=== PATIENT | female | born 1950 | race Caucasian/White ===

== ENCOUNTER → 2018-12-13 14:08 | Outpatient (CLI) | payer MEDICARE, OTHER, SELFPAY ==
--- NOTE | 2018-12-13 | DI.MG.S_ITS ---
BILATERAL DIGITAL SCREENING MAMMOGRAM 3D/2D WITH CAD: 12/13/2018 CLINICAL: Routine screening. Family history of breast cancer. Comparison is made to exams dated: 09/27/2014 mammogram, 04/09/2011 mammogram, and 04/03/2011 mammogram - [facility]. The tissue of both breasts is heterogeneously dense. This may lower the sensitivity of mammography. Current study was also evaluated with a Computer Aided Detection (CAD) system. No significant masses, calcifications, or other findings are seen in either breast. There has been no significant interval change. IMPRESSION: NEGATIVE There is no mammographic evidence of malignancy. A 1 year screening mammogram is recommended. This exam was interpreted at Station ID: [id number]. NOTE: For mammograms, a report in lay terms will be sent to the patient. Approximately 15% of breast malignancies will not be visualized mammographically. In the management of a palpable breast mass, a negative mammogram must not discourage biopsy of a clinically suspicious lesion. Electronically Signed By: Dez rossi/yael:12/13/2018 18:42:54 letter sent: Normal Exam ACR BI-RADS Category 1: Negative 3341F
== END ==
PROVIDERS: PCP Physician Assistant; Visit Provider Physician Assistant
DX: Z12.31 Encounter for screening mammogram for malignant neoplasm of breast (principal); Z80.3 Family history of malignant neoplasm of breast
CPT/HCPCS: 77063; 77067

== ENCOUNTER 2019-02-08 11:55 | Day surgery (SDC) | payer MEDICARE, OTHER, SELFPAY ==
--- NOTE | 2019-02-08 | PATH_ITS ---
[facility] Accession Number: [id number] . 01 Material submitted: . PART A: colon - RANDOM COLON PART B: colon - TRANSVERSE COLON POLYP PART C: colon - DESCENDING COLON POLYP PART D: sigmoid colon - SIGMOID COLON POLYP . 02 Diagnosis: A. Random Colon, Biopsies: Colonic mucosa with no diagnostic abnormality. Negative for active, chronic, and microscopic colitis. Negative for dysplasia and malignancy. . B. Transverse Colon, Polyp, Biopsy: Tubular adenoma. . C. Descending Colon, Polyp, Biopsy: Colonic mucosa with no diagnostic abnormality, consistent with polypoid redundancy. Negative for dysplasia and malignancy. . D. Sigmoid Colon, Polyp, Biopsy: Tubular adenoma. I02/09/2019 . 02 Electronically signed: . Milli Abarca MD, Pathologist NPI- [id number] . 01 Gross description: . Part A: RANDOM COLON: Received in formalin are multiple fragment(s) of connell, soft tissue measuring 0.2 x 0.2 x 0.2 cm to 0.3 x 0.3 x 0.3 cm which is entirely submitted and submitted entirely in 1 cassette(s) Part B: TRANSVERSE COLON POLYP: Received in formalin is 1 fragment(s) of connell, soft tissue measuring 0.7 x 0.3 x 0.2 cm which is entirely submitted and submitted entirely in 1 cassette(s) Part C: DESCENDING COLON POLYP: Received in formalin is 1 fragment(s) of connell, soft tissue measuring 0.4 x 0.3 x 0.2 cm which is entirely submitted and submitted entirely in 1 cassette(s) Part D: SIGMOID COLON POLYP: Received in formalin is 1 fragment(s) of connell, soft tissue measuring 0.6 x 0.6 x 0.6 cm which is entirely submitted and submitted entirely in 1 cassette(s) /D[facility] /[facility] . 02 Pathologist provided ICD-10: D12.3, D12.5 . 02 CPT . 486865, 647555, [id number], [id number] Performed at: 01 [facility] [address] [id number] MD Ariel Wheeler MD Phone: [phone] Performed at: 02 [facility] [address] [place] [id number] MD Milli Abarca MD Phone: [phone]
[2019-02-08 12:13] VITALS: BMI 20.9
[2019-02-08 12:19] VITALS: BP 126/67; PULSE 68; RESP 16; TEMP 36.7; O2SAT 100
[2019-02-08] MEDS: SODIUM CHLORIDE 0.9% 1,000 ML 70 ML IV (12:21)
--- NOTE | 2019-02-08 12:52 | PM.HP.1 ---
History of Present Illness Date Patient Seen: 02/08/19 Chief complaint: [id number] Narrative: 68-year-old female seen at our office 01/17/2019 due to chronic loose stools. Please refer to that office note for further details. No new changes in her clinical condition Patient History Social History household members: spouse Family & Social History Social History: household members spouse Meds Home Medications Medication Instructions Recorded Confirmed Type cholecalciferol (vitamin D3) 2,000 unit PO DAILY 02/08/19 02/08/19 History [Vitamin D3] omega 1-hlg-whm-fish oil [Fish Oil] 1 cap PO DAILY 02/08/19 02/08/19 History Allergies Allergy/AdvReac Type Severity Reaction Status Date / Time codeine [CODEINE] Allergy Unknown INABILITY Verified 02/08/19 12:15 TO SLEEP Exam Vital Signs (past 8 hours): - 02/08/19 12:19 Temperature 98.0 F Pulse Rate 68 Respiratory Rate 16 Blood Pressure 126/67 Pulse Oximetry 100 Oxygen Delivery Method Room Air Narrative Exam Narrative: General: Patient is well developed, not in apparent distress Cardiovascular: Regular rate and rhythm, no murmurs, rubs, or gallops; no evidence of edema; no palpable abdominal aortic aneurysm Gastrointestinal: Normoactive bowel sounds, soft, nontender, nondistended, no rebound tenderness, no hepatosplenomegaly, no evidence of hernia Assessment & Plan Assessment & Plan narrative: 68-year-old female with a history of chronic loose stools who is here for colonoscopy to evaluate for microscopic colitis. Regarding the procedure(s), the risks and potential complications, benefits, and alternatives (including not doing the procedure) were discussed with the patient. The risks include but are not limited to bleeding, splenic injury, infection, perforation which may require surgical intervention, missed lesions, and adverse reactions to sedative medicines. After a question and answer period, the patient agreed to proceed with the procedure(s) and gives informed consent.
[2019-02-08] MEDS: MIDAZOLAM 5 MG/5 ML VIAL IV (13:11)
[2019-02-08] MEDS: fentaNYL 250 MCG/5 ML INJ IV (13:13)
[2019-02-08 13:31] VITALS: BP 117/74; PULSE 64; RESP 16; TEMP 36.7; O2SAT 99
[2019-02-08 13:37] VITALS: BP 122/66; PULSE 72; RESP 18; O2SAT 99
[2019-02-08 13:41] VITALS: BP 113/69; PULSE 65; RESP 20; O2SAT 98
--- NOTE | 2019-02-08 13:41 | P.OP.ENDO_ITS ---
Operative Date/Time/Diagnoses Date of procedure: 02/08/19 Procedure Notes Procedure in detail: Surgeon: Remberto Oro MD Procedure: Colonoscopy with polypectomy Preoperative diagnosis: Chronic diarrhea Postoperative diagnosis: Colon polyps x3 status post polypectomy, diverticulosis, grade 1 internal hemorrhoids Medications: Conscious sedation using 5 mg IV of Midazolam and 100 mcg IV of Fentanyl Preanesthesia Assessment An H and P was performed/updated and the Px?s ASA class is 1. The procedure was discussed in detail with the patient. The potential risks and complications including infection, bleeding, missed lesions, perforation, need for surgery in case of perforation, prolonged hospital stay, and were explained. A brief question and answer period was allotted and once all questions were answered, informed consent was obtained. The patient was brought back to the procedure room and placed on standard monitoring. The patient?s vital signs were monitored continuously throughout the entire procedure. Prior to starting, a timeout was performed to confirm the patient?s identity, allergies, medications, and procedure. Procedure in detail The patient was placed in left lateral decubitus position and once adequate sedation was obtained a BARON was performed. The digital rectal examination did not reveal any palpable lesions. The tip of the colonoscope was placed in the anal canal and advanced without difficulty all the way to the cecum which was identified by the appendiceal orifice and the ileocecal valve. The terminal ileum could not be intubated due to significant looping of the scope. Careful examination of all reyna of the colon was performed with irrigation of any residual stool. The colon mucosa appeared normal throughout the entire colon. In the transverse colon, a 3 mm sessile polyp was removed by means of cold Jumbo forceps. Resection and retrieval were complete with minimal bleeding In the descending colon, a 3 mm sessile polyp was removed by means of cold Jumbo forceps. Resection and retrieval were complete with minimal bleeding In the sigmoid colon a 6 mm pedunculated polyp was removed by means of hot snare. Resection and retrieval were complete with no bleeding. There was note of few diverticula in the transverse and descending colon. There was note of multiple large and medium-sized diverticula throughout the entire sigmoid colon. Retroflexion was performed in the rectum which revealed grade 1 internal he morrhoids The patient tolerated the procedure well and will be brought back to the recovery area to be discharged once criteria are met. The prep was judged to be good/excellent and adequate to identify polyps less than 5 mm. The withdrawal time was 11 minutes. The total physician intraservice time was 23 minutes. Complications There were no complications and estimated blood loss was minimal. Recommendations: Resume previous diet Continue outPx medications Follow up pathology results Repeat colonoscopy in 3 or 5 years depending on pathology results Office follow up with Dr. Russell as previously scheduled An emergency contact number was given to the patient for any complications related to the procedure
--- NOTE | 2019-02-08 13:42 | P.DS_ITS ---
History of Present Illness Chief complaint: [id number] Narrative: 68-year-old female seen at our office 01/17/2019 due to chronic loose stools. Please refer to that office note for further details. No new changes in her clinical condition Discharge Providers Discharge Date: 02/08/19 Primary care physician: Kimber Jones PA-C Discharge provider: Remberto Oro MD Exam Vital Signs (past 8 hours): - 02/08/19 12:19 02/08/19 13:31 02/08/19 13:37 Temperature 98.0 F 98.1 F Pulse Rate 68 64 72 Respiratory Rate 16 16 18 Blood Pressure 126/67 117/74 122/66 Pulse Oximetry 100 99 99 Oxygen Delivery Method Room Air Narrative Exam Narrative: General: Patient is well developed, not in apparent distress Cardiovascular: Regular rate and rhythm, no murmurs, rubs, or gallops; no evidence of edema; no palpable abdominal aortic aneurysm Gastrointestinal: Normoactive bowel sounds, soft, nontender, nondistended, no rebound tenderness, no hepatosplenomegaly, no evidence of hernia Discharge Plan Discharge Plan Patient Disposition: Home Discharge Med Rec/Prescriptions Prescriptions: Continued cholecalciferol (vitamin D3) [Vitamin D3] 2,000 unit Capsule 2,000 unit PO DAILY RF: 0 omega 3-btj-isr-fish oil [Fish Oil] 1,000 mg (120 mg-180 mg) Capsule 1 cap PO DAILY RF: 0 Follow up/Referrals: Kimber Jones PA-C [Primary Care Provider] - Discharge Orders: Discharge (Order); Ordered 02/08/19 Ordered By: Remberto Oro Provider Discharge Instructions Diet: Diet as Tolerated Visit Report/Discharge Packet Stand Alone Forms: Colonoscopy Result: [facility] Discharge Data Primary Care Provider: Kimber Jones Attending Provider: Remberto Oro
[2019-02-08 13:44] VITALS: BP 128/69; PULSE 68; RESP 12; TEMP 36.8; O2SAT 97
== END 2019-02-08 14:03 | disposition home or self-care (01) ==
PROVIDERS: PCP Physician Assistant; Visit Provider Internal Medicine Gastroenterology
PROC: 0DJD8ZZ Inspection of Lower Intestinal Tract, Via Natural or Artificial Opening Endoscopic (ICD-10-PCS; CPT 45378; principal; 2019-02-08 13:30)
DX: K52.9 Noninfective gastroenteritis and colitis, unspecified (principal); K57.30 Diverticulosis of large intestine without perforation or abscess without bleeding; K64.0 First degree hemorrhoids; D12.3 Benign neoplasm of transverse colon; D12.5 Benign neoplasm of sigmoid colon
CPT/HCPCS: 45385; 45380; 88305; J2250; J3010

== ENCOUNTER → 2019-03-08 08:56 | Outpatient (CLI) | payer MEDICARE, OTHER, SELFPAY ==
[2019-03-12 19:33] LABS: Calprotectin, Stool < 15.6 mcg/g
== END ==
PROVIDERS: PCP Physician Assistant; Visit Provider Internal Medicine Gastroenterology
DX: R19.7 Diarrhea, unspecified (principal)
CPT/HCPCS: 83993

== ENCOUNTER → 2019-08-22 14:13 | Outpatient (CLI) | payer MEDICARE, OTHER, SELFPAY ==
--- NOTE | 2019-08-22 | DI.RAD.S_ITS ---
PROCEDURE: XR HAND LT 2V INDICATIONS: PRIMARY OSTEOARTHRITIS BOTH HANDS TECHNIQUE: 3 views of the hand(s) acquired. COMPARISON: [facility], , XR HAND 3V LT, 09/05/2003, 2:45. FINDINGS: Bones: No fractures or dislocations. Carpal bones are normally aligned. No suspicious bony lesions. There is moderate degenerative joint disease at the first carpometacarpal joint, and mild degenerative joint disease at the radiocarpal joint, multiple metacarpophalangeal joints and multiple interphalangeal joints. Soft tissues: No suspicious soft tissue calcifications. IMPRESSION: Moderate degenerative joint disease. Dictated by: Manuel Sutton M.D. on 08/22/2019 at 18:03 Approved by: Manuel Sutton M.D. on 08/22/2019 at 18:05
--- NOTE | 2019-08-22 | DI.RAD.S_ITS ---
PROCEDURE: XR HAND RT 2V INDICATIONS: PRIMARY OSTEOARTHRITIS BOTH HANDS TECHNIQUE: 2 views of the hand(s) acquired. COMPARISON: None. FINDINGS: Bones: No acute fractures or dislocations. Carpal bones are normally aligned. Probably old dorsal plate injury at the fifth proximal interphalangeal joint. No suspicious bony lesions. Nlaj-ad-bqoxpque degenerative joint disease at the radiocarpal joint, triscaphe joint, first carpal metacarpal joint, multiple metacarpal phalangeal joints and interphalangeal joints. Soft tissues: No suspicious soft tissue calcifications. IMPRESSION: Vmzq-rj-nwzjstyx osteoarthritis. Likely old dorsal plate injury at the fifth proximal interphalangeal joint. Dictated by: Manuel Sutton M.D. on 08/22/2019 at 18:01 Approved by: Manuel Sutton M.D. on 08/22/2019 at 18:02
== END ==
PROVIDERS: PCP Physician Assistant; Visit Provider Physician Assistant
DX: M19.042 Primary osteoarthritis, left hand (principal); M19.041 Primary osteoarthritis, right hand
CPT/HCPCS: 73120

== ENCOUNTER → 2019-12-20 10:59 | Outpatient (CLI) | payer MEDICARE, OTHER, SELFPAY ==
--- NOTE | 2019-12-20 11:04 | DI.MG.S_ITS ---
BILATERAL DIGITAL SCREENING MAMMOGRAM 3D/2D WITH CAD: 12/20/2019 CLINICAL: Routine screening. Family history of breast cancer. Comparison is made to exams dated: 12/13/2018 mammogram, 09/27/2014 mammogram, and 04/09/2011 mammogram - [facility]. The tissue of both breasts is heterogeneously dense. This may lower the sensitivity of mammography. Current study was also evaluated with a Computer Aided Detection (CAD) system. No significant masses, calcifications, or other findings are seen in either breast. There has been no significant interval change. IMPRESSION: NEGATIVE There is no mammographic evidence of malignancy. A 1 year screening mammogram is recommended. This exam was interpreted at Station ID: [id number]. NOTE: For mammograms, a report in lay terms will be sent to the patient. Approximately 15% of breast malignancies will not be visualized mammographically. In the management of a palpable breast mass, a negative mammogram must not discourage biopsy of a clinically suspicious lesion. Electronically Signed By: Vianca lugo/yael:12/20/2019 16:12:42 letter sent: Normal Exam ACR BI-RADS Category 1: Negative 3341F
== END ==
PROVIDERS: PCP Physician Assistant; Referring Provider Physician Assistant; Visit Provider Physician Assistant
DX: Z12.31 Encounter for screening mammogram for malignant neoplasm of breast (principal); Z80.3 Family history of malignant neoplasm of breast
CPT/HCPCS: 77063; 77067

== ENCOUNTER → 2020-11-21 07:36 | Outpatient (CLI) | payer MEDICARE, OTHER, SELFPAY ==
[2020-11-21] MEDS: COVID-19 VACC #1, MRNA(MOD) 100 MCG/0.5 ML VIAL IM (07:48)
== END ==
PROVIDERS: PCP Physician Assistant; Visit Provider Internal Medicine
DX: Z23 Encounter for immunization (principal)
CPT/HCPCS: 0011A; 91301

== ENCOUNTER → 2020-12-19 07:32 | Outpatient (CLI) | payer MEDICARE, OTHER, SELFPAY ==
[2020-12-19] MEDS: COVID-19 VACC #2, MRNA(MOD) 100 MCG/0.5 ML VIAL IM (07:38)
== END ==
PROVIDERS: PCP Physician Assistant; Visit Provider Internal Medicine
DX: Z23 Encounter for immunization (principal)
CPT/HCPCS: 0012A; 91301

== ENCOUNTER → 2020-12-27 10:35 | Outpatient (CLI) | payer MEDICARE, OTHER, SELFPAY ==
--- NOTE | 2020-12-27 10:38 | DI.MG.S_ITS ---
BILATERAL DIGITAL SCREENING MAMMOGRAM 3D/2D WITH CAD: 12/27/2020 CLINICAL: Routine screening. Family history of breast cancer. Comparison is made to exams dated: 12/20/2019 mammogram, 12/13/2018 mammogram, and 09/27/2014 mammogram - [facility]. The tissue of both breasts is heterogeneously dense. This may lower the sensitivity of mammography. Current study was also evaluated with a Computer Aided Detection (CAD) system. No significant masses, calcifications, or other findings are seen in either breast. There has been no significant interval change. IMPRESSION: NEGATIVE There is no mammographic evidence of malignancy. A 1 year screening mammogram is recommended. This exam was interpreted at Station ID: [id number]. NOTE: For mammograms, a report in lay terms will be sent to the patient. Approximately 15% of breast malignancies will not be visualized mammographically. In the management of a palpable breast mass, a negative mammogram must not discourage biopsy of a clinically suspicious lesion. Electronically Signed By: Leonides lomas/yael:12/27/2020 12:23:41 letter sent: Normal Exam ACR BI-RADS Category 1: Negative 3341F
== END ==
PROVIDERS: PCP Physician Assistant; Referring Provider Physician Assistant; Visit Provider Physician Assistant
DX: Z12.31 Encounter for screening mammogram for malignant neoplasm of breast (principal); Z80.3 Family history of malignant neoplasm of breast
CPT/HCPCS: 77063; 77067

== ENCOUNTER → 2021-08-27 09:02 | Outpatient (CLI) | payer MEDICARE, OTHER, SELFPAY ==
--- NOTE | 2021-08-27 09:07 | DI.RAD.S_ITS ---
PROCEDURE: XR ANKLE LT MIN 3V INDICATIONS: LT FOOT/ANKLE INJURY TECHNIQUE: 3 views of the ankle were acquired. COMPARISON: [facility], , XR FOOT LT MIN 3V, 08/27/2021, 9:01. FINDINGS: Bones: No fractures or dislocations. Ankle mortise is normally aligned. No suspicious bony lesions. Soft tissues: No tibiotalar joint effusion. Achilles tendon appears normal. IMPRESSION: No visualized acute fracture or dislocation. However, if clinical concern and/or pain persist, short interval imaging followup in 7-10 days is recommended, as occult injury cannot be definitively excluded. Dictated by: Yessica Cordoba M.D. on 08/27/2021 at 16:32 Approved by: Yessica Cordoba M.D. on 08/27/2021 at 16:35
--- NOTE | 2021-08-27 09:07 | DI.RAD.S_ITS ---
PROCEDURE: XR FOOT LT MIN 3V INDICATIONS: LT FOOT/ANKLE INJURY TECHNIQUE: 3 views of the foot were acquired. COMPARISON: [facility], , FOOT 3V LEFT, 08/18/2011, 16:31. FINDINGS: Bones: No acute fracture. Moderate 1st MTP joint degeneration. Bunion deformity of the 5th metatarsal. There is adjacent soft tissue swelling, at the level of the 5th metatarsal head. Scattered degenerative subchondral sclerosis and spurring. Soft tissues: No tibiotalar joint effusion. Achilles tendon appears normal. IMPRESSION: Chronic and degenerative changes as above. If the patient's pain or other symptoms persist, consider further evaluation with MRI Dictated by: Bashir Valladares M.D. on 08/27/2021 at 16:17 Approved by: Bashir Valladares M.D. on 08/27/2021 at 16:19
== END ==
PROVIDERS: PCP Physician Assistant; Referring Provider Internal Medicine; Visit Provider Internal Medicine
DX: S99.912A Unspecified injury of left ankle, initial encounter (principal); M21.622 Bunionette of left foot; X58.XXXA Exposure to other specified factors, initial encounter
CPT/HCPCS: 73610; 73630

== ENCOUNTER → 2021-09-12 16:25 | Outpatient (CLI) | payer MEDICARE, OTHER, SELFPAY ==
[2021-09-12] MEDS: COVID-19 VACC #3, MRNA(MOD) 50 MCG/0.25 ML VIAL IM (16:43)
== END ==
PROVIDERS: PCP Physician Assistant; Visit Provider Internal Medicine
DX: Z23 Encounter for immunization (principal)
CPT/HCPCS: 0013A; 91301

== ENCOUNTER → 2021-10-09 08:52 | Outpatient (CLI) | payer MEDICARE, OTHER, SELFPAY ==
--- NOTE | 2021-10-09 | DI.RAD.S_ITS ---
PROCEDURE: XR FOOT LT MIN 3V INDICATIONS: LEFT ANKLE INJURY TECHNIQUE: 3 views of the foot were acquired. COMPARISON: [facility], , XR FOOT LT MIN 3V, 08/27/2021, 9:01. FINDINGS: Bones: No fractures or dislocations. No suspicious bony lesions. Moderate 1st MTP joint osteoarthritis. Mild midfoot osteoarthritis. Lateral bunion deformity is stable compared to the prior examination. Soft tissue prominence adjacent to the 5th metatarsal bunion is stable. Soft tissues: No tibiotalar joint effusion. Achilles tendon appears normal. IMPRESSION: No fracture. No acute osseous lesion. If symptoms and/or clinical suspicion for pathology persists, further assessment with repeat radiographs (7-10 days) or advanced imaging (e.g. CT, MRI or bone scan) should be considered. Dictated by: Margot Hayden MD, PhD on 10/09/2021 at 16:06 Approved by: Margot Hayden MD, PhD on 10/09/2021 at 16:08
== END ==
PROVIDERS: PCP Physician Assistant; Referring Provider Physician Assistant; Visit Provider Internal Medicine
DX: S99.912A Unspecified injury of left ankle, initial encounter (principal); M19.072 Primary osteoarthritis, left ankle and foot; X58.XXXA Exposure to other specified factors, initial encounter
CPT/HCPCS: 73610; 73630

== ENCOUNTER → 2021-11-03 11:41 | Outpatient (CLI) | payer MEDICARE, OTHER, SELFPAY ==
[2021-11-03 14:51] LABS: COVID19 -Nasal RAPID Negative (Negative)
== END ==
PROVIDERS: PCP Physician Assistant; Referring Provider Nurse Practitioner Family; Visit Provider Nurse Practitioner Family
DX: Z01.812 Encounter for preprocedural laboratory examination (principal); Z20.822 Contact with and (suspected) exposure to COVID-19
CPT/HCPCS: 87635; C9803

== ENCOUNTER 2021-11-04 07:45 | Day surgery (SDC) | payer MEDICARE, OTHER, SELFPAY ==
[2021-11-04] MEDS: PROPARACAINE 0.5% OPHTH SOL 2 DROPS EYE-OP (08:35)
[2021-11-04] MEDS: CATARACT EYE COMPOUND (10 DROPS/SYRINGE) 3 DROPS EYE-OP (08:35)
[2021-11-04 09:03] VITALS: BP 135/76; PULSE 63; RESP 18; TEMP 36.3; O2SAT 100
--- NOTE | 2021-11-04 09:37 | PM.PREOP ---
Pre-operative Note Interval Note History & Physical reviewed/Exam performed by Physician: Yes Changes to H&P: No
--- NOTE | 2021-11-04 09:37 | PM.OP.1 ---
Operative Date/Time/Diagnoses Pre-op diagnosis: Nuclear cataract right eye Procedure & Clinicians Procedure: Cataract Surgery Same procedure as scheduled: Yes Surgeon: Tyshawn Raygoza Anesthesia Type: MAC +/- and Sedation Operative Notes Procedure in detail: Patient brought to the operating suite. Tetracaine drops placed in the right eye. Patient was prepped and draped in sterile manner. Wire lid speculum was placed in the eye. Betadine drops were placed on the eye. This was irrigated. Lidocaine jelly was placed on the eye. A paracentesis port was created with a side-port blade. 0.1 mL 1% preservative free lidocaine was injected into the anterior chamber. The anterior chamber was deepened with viscoelastic. 2.6 mm keratome was used to create a temporal clear corneal incision. Cystotome and Utrata forceps were used to create continuous tear capsulorrhexis. Balanced salt solution was used to hydro dissect the nucleus. The phacoemulsification handpiece was inserted and the nucleus was removed using the stop and chop technique. The irrigation aspiration handpiece was inserted and the remaining cortex was removed. Anterior chamber was deepened with viscoelastic. An Henry DIB00 intraocular lens with a power of 21.0 was injected into the capsular bag. Irrigation aspiration handpiece was inserted and the remaining viscoelastic was removed. Incision was hydrated with balanced salt solution and found to be leak free with pressure with Weck-Luna sponges. 0.1 mL Vigamox injected anterior chamber. 0.3 mL Kenalog 10 mg was injected subconjunctivally. Lid speculum was removed. The patient left the operating room in excellent condition. Complications: none Post-operative Condition: stable Disposition: same day surgery
[2021-11-04] MEDS: MOXIFLOXACIN INJ 4 MG/0.8 ML VIAL 0.5 MG EYE-OP (09:56)
[2021-11-04] MEDS: HYALURONATE SODIUM 30 MG-10 MG/ML SYRINGES 1 BOX INTRAOCULA (09:56)
[2021-11-04] MEDS: PHENYLEPHRINE/LIDOCAINE VIAL (OR) 0.2 ML EYE-OP (09:57)
[2021-11-04] MEDS: TRIAMCINOLONE 50 MG/5 ML VIAL INJ (09:57)
[2021-11-04] MEDS: TETRACAINE 0.5% OPHTH DROPS 4 ML 2 DROPS EYE-OP (09:57)
[2021-11-04] MEDS: LIDOCAINE 2% (GLYDO) 6 ML GEL TOP (09:57)
[2021-11-04] MEDS: BALANCED SALT IRRIG SOLN NO.2 500 ML, EPINEPHrine 1 MG IRR (09:57)
[2021-11-04 10:09] VITALS: BP 135/76; PULSE 63; RESP 16; TEMP 36.3; O2SAT 100
[2021-11-04 10:25] VITALS: BP 133/72; PULSE 57; RESP 16; TEMP 36.4; O2SAT 99
== END 2021-11-04 10:27 | disposition home or self-care (01) ==
PROVIDERS: PCP Physician Assistant; Referring Provider Ophthalmology; Visit Provider Ophthalmology
PROC: (CPT 66984; principal; 2021-11-04 09:45)
DX: H25.11 Age-related nuclear cataract, right eye (principal)
CPT/HCPCS: 66984; J0171; J2250; J3301

== ENCOUNTER → 2021-12-01 11:50 | Outpatient (CLI) | payer MEDICARE, OTHER, SELFPAY ==
[2021-12-01 13:53] LABS: COVID19 -Nasal RAPID Negative (Negative)
== END ==
PROVIDERS: PCP Physician Assistant; Visit Provider Family Medicine Sleep Medicine
DX: Z20.822 Contact with and (suspected) exposure to COVID-19 (principal)
CPT/HCPCS: 87635; C9803

== ENCOUNTER 2021-12-02 12:00 | Day surgery (SDC) | payer MEDICARE, OTHER, SELFPAY ==
[2021-12-02] MEDS: PROPARACAINE 0.5% OPHTH SOL 2 DROPS EYE-OP (13:00)
[2021-12-02 13:05] VITALS: BP 133/74; PULSE 75; RESP 16; TEMP 36.8; O2SAT 97; BMI 21.6
[2021-12-02] MEDS: CATARACT EYE COMPOUND (10 DROPS/SYRINGE) 3 DROPS EYE-OP (13:18)
--- NOTE | 2021-12-02 13:41 | P.OP.PRE_ITS ---
Pre-operative Note Interval Note History & Physical reviewed/Exam performed by Physician: Yes Changes to H&P: No Addendum Addendum Note: There are not any non surgical alternatives for the patient's condition. Det erioration of the patient's condition is expected. Delay may result in more complex future surgery
--- NOTE | 2021-12-02 13:42 | PM.OP.1 ---
Operative Date/Time/Diagnoses Pre-op diagnosis: Nuclear Cataract Left eye Post-op diagnosis: same Procedure & Clinicians Same procedure as scheduled: Yes Surgeon: Tyshawn Raygoza Anesthesia Type: MAC +/- and Sedation Operative Notes Procedure in detail: Patient brought to the operating suite. Tetracaine drops placed in the left eye. Patient was prepped and draped in sterile manner. Wire lid speculum was placed in the eye. Betadine drops were placed on the eye. This was irrigated. Lidocaine jelly was placed on the eye. A paracentesis port was created with a side-port blade. 0.1 mL 1% preservative free lidocaine was injected into the anterior chamber. The anterior chamber was deepened with viscoelastic. 2.6 mm keratome was used to create a temporal clear corneal incision. Cystotome and Utrata forceps were used to create continuous tear capsulorrhexis. Balanced salt solution was used to hydro dissect the nucleus. The phacoemulsification handpiece was inserted and the nucleus was removed using the stop and chop technique. The irrigation aspiration handpiece was inserted and the remaining cortex was removed. Anterior chamber was deepened with viscoelastic. An Henry DIB00 intraocular lens with a power of 25.5 was injected into the capsular bag. Irrigation aspiration handpiece was inserted and the remaining viscoelastic was removed. Incision was hydrated with balanced salt solution and found to be leak free with pressure with Weck-Luna sponges. 0.1 mL Vigamox injected anterior chamber. 0.3 mL Kenalog 10 mg was injected subconjunctivally. Lid speculum was removed. The patient left the operating room in excellent condition. Complications: none Post-operative Condition: stable Disposition: same day surgery
[2021-12-02] MEDS: HYALURONATE SODIUM 30 MG-10 MG/ML SYRINGES 1 BOX INTRAOCULA (13:56)
[2021-12-02] MEDS: BALANCED SALT IRRIG SOLN NO.2 500 ML, EPINEPHrine 1 MG IRR (13:57)
[2021-12-02] MEDS: MOXIFLOXACIN INJ 4 MG/0.8 ML VIAL 0.5 MG EYE-OP (13:57)
[2021-12-02] MEDS: PHENYLEPHRINE/LIDOCAINE VIAL (OR) 0.2 ML EYE-OP (13:57)
[2021-12-02] MEDS: LIDOCAINE 2% (GLYDO) 6 ML GEL TOP (13:57)
[2021-12-02] MEDS: TETRACAINE 0.5% OPHTH DROPS 4 ML 2 DROPS EYE-OP (13:57)
[2021-12-02] MEDS: TRIAMCINOLONE 50 MG/5 ML VIAL INJ (13:57)
[2021-12-02 14:18] VITALS: BP 119/74; PULSE 69; RESP 16; TEMP 36.6; O2SAT 98
== END 2021-12-02 14:31 | disposition home or self-care (01) ==
PROVIDERS: PCP Physician Assistant; Referring Provider Ophthalmology; Visit Provider Ophthalmology
PROC: (CPT 66984; principal; 2021-12-02 13:45)
DX: H25.12 Age-related nuclear cataract, left eye (principal)
CPT/HCPCS: 66984; J0171; J2250; J3301

== ENCOUNTER → 2022-06-12 12:21 | Outpatient (CLI) | payer MEDICARE, OTHER, SELFPAY ==
[2022-06-12 12:46] LABS: Appearance Urine UA CLEAR; Bilirubin Urine UA NEGATIVE (NEGATIVE); Color Urine UA YELLOW; Glucose Urine UA NEGATIVE (Negative); Ketones Urine UA NEGATIVE (NEGATIVE); Leukocyte Esterase Urine UA 1+ (NEGATIVE); Nitrite Urine UA NEGATIVE (Negative); Occult Blood Urine UA 3+ (Negative); Protein Urine UA NEGATIVE (Negative); Urobilinogen Urine UA 0.2 E.U./dL (0.2)
[2022-06-12 12:54] LABS: pH Urine UA 5.5 (4.5-8.0)
[2022-06-12 13:16] LABS: Bacteria Urine None Seen; Culture Indicated Urine Cult Not Indicated; RBC Urine 10-30/HPF (0-5/HPF); Squamous Epithelial Cell Urine None Seen (0-5/HPF); WBC Urine 1-5/HPF (0-5/HPF)
== END ==
PROVIDERS: PCP Physician Assistant; Visit Provider Nurse Practitioner Critical Care Medicine
DX: R30.0 Dysuria (principal); R35.0 Frequency of micturition
CPT/HCPCS: 81001; 87086

== ENCOUNTER → 2023-01-18 15:29 | Outpatient (CLI) | payer MEDICARE, OTHER, SELFPAY ==
--- NOTE | 2023-01-18 15:32 | DI.MG.S_ITS ---
BILATERAL DIGITAL SCREENING MAMMOGRAM 3D/2D WITH CAD: 01/18/2023 CLINICAL: Routine screening. Family history of breast cancer. Comparison is made to exams dated: 12/16/2021 mammogram - [facility], 12/27/2020 mammogram, and 12/20/2019 mammogram - [facility]. Both breasts are heterogeneously dense, which may obscure small masses (category c / 51-75% glandular tissue). Current study was also evaluated with a Computer Aided Detection (CAD) system. No significant masses, calcifications, or other findings are seen in either breast. There has been no significant interval change. IMPRESSION: NEGATIVE There is no mammographic evidence of malignancy. A 1 year screening mammogram is recommended. Based on the Tyrer Cuzick model (a risk assessment model) the patient's lifetime risk is 14.6% and her 10 year risk is 10.2%. According to the ACR, ACS, and NCCN guidelines, an annual breast MRI exam along with mammogram is recommended if the patient's lifetime risk is 20% or greater. This exam was interpreted at Station ID: [id number]. NOTE: For mammograms, a report in lay terms will be sent to the patient. Approximately 15% of breast malignancies will not be visualized mammographically. In the management of a palpable breast mass, a negative mammogram must not discourage biopsy of a clinically suspicious lesion. Electronically Signed By: Huy pickard/yael:01/19/2023 08:51:47 letter sent: Normal Exam ACR BI-RADS Category 1: Negative 3341F
== END ==
PROVIDERS: PCP Physician Assistant; Referring Provider Physician Assistant; Visit Provider Physician Assistant
DX: Z12.31 Encounter for screening mammogram for malignant neoplasm of breast (principal)
CPT/HCPCS: 77063; 77067

== ENCOUNTER → 2024-01-20 11:12 | Outpatient (CLI) | payer MEDICARE, OTHER, SELFPAY ==
--- NOTE | 2024-01-20 11:14 | DI.MG.S_ITS ---
BILATERAL DIGITAL SCREENING MAMMOGRAM 3D/2D WITH CAD: 01/20/2024 CLINICAL: Routine screening. Family history of breast cancer. Comparison is made to exams dated: 01/18/2023 mammogram - [facility], 12/16/2021 mammogram - [facility], and 12/27/2020 mammogram - [facility]. Both breasts are heterogeneously dense, which may obscure small masses (category c / 51-75% glandular tissue). Current study was also evaluated with a Computer Aided Detection (CAD) system. No significant masses, calcifications, or other findings are seen in either breast. There has been no significant interval change. IMPRESSION: NEGATIVE There is no mammographic evidence of malignancy. A 1 year screening mammogram is recommended. Based on the Tyrer Cuzick model (a risk assessment model) the patient's lifetime risk is 13.9% and her 10 year risk is 10.5%. According to the ACR, ACS, and NCCN guidelines, an annual breast MRI exam along with mammogram is recommended if the patient's lifetime risk is 20% or greater. This exam was interpreted at Station ID: [id number]. NOTE: For mammograms, a report in lay terms will be sent to the patient. Approximately 15% of breast malignancies will not be visualized mammographically. In the management of a palpable breast mass, a negative mammogram must not discourage biopsy of a clinically suspicious lesion. Electronically Signed By: Rene herndon/yael:01/20/2024 13:21:31 letter sent: Normal Exam ACR BI-RADS Category 1: Negative 3341F
== END ==
PROVIDERS: PCP Physician Assistant; Referring Provider Physician Assistant; Visit Provider Physician Assistant
DX: Z12.31 Encounter for screening mammogram for malignant neoplasm of breast (principal); Z80.3 Family history of malignant neoplasm of breast; R92.333 Mammographic heterogeneous density, bilateral breasts
CPT/HCPCS: 77063; 77067

== ENCOUNTER 2024-12-07 09:34 | Day surgery (SDC) | payer MEDICARE, OTHER, SELFPAY ==
--- NOTE | 2024-12-07 | PATH_ITS ---
[facility] Accession Number: [id number] No. of containers..01 Tissue . 01 Material submitted: . colon - ASCENDING COLON . 01 Diagnosis: ASCENDING COLON: Colonic mucosa with no diagnostic alterations. No neoplasm or definite polyp identified. . Specimen Comments: Additional step sections were examined. [facility] 12/11/2024 1226 Local . 01 Electronically signed: . Ariel Wheeler MD, Pathologist NPI- [id number] . 01 Gross description: . ASCENDING COLON: Received in formalin is 1 fragment(s) of connell, soft tissue measuring 0.3 x 0.2 x 0.1 cm submitted entirely in 1 cassette(s) /KATHIE 12/11/2024 1226 Local . 01 Pathologist provided ICD-10: Z86.0100 . 01 CPT . 906606 Specimen Comment: A courtesy copy of this report has been sent to [facility] Performed at: [address] [address], [place], [place] [id number] MD Ariel Wheeler MD Phone: [phone]
[2024-12-07] MEDS: LACTATED RINGERS 1,000 ML 42 ML IV (10:53)
[2024-12-07 10:58] VITALS: BP 114/64; PULSE 57; RESP 14; TEMP 37.2; O2SAT 97
--- NOTE | 2024-12-07 11:26 | PM.HP.IH.1 ---
History of Present Illness History of Present Illness Date Patient Seen: 12/07/24 Time Patient Seen: 11:26 Chief complaint: SDC Narrative: 74-year-old white female, previous colonoscopies with polyps presents for surveillance. [facility] Medical History (Updated 12/07/24 @ 11:27 by Cory Blancas MD) Personal history of colonic polyps Social History household members: spouse Smoking Status: Former smoker alcohol intake: current Meds Home Medications and Allergies Home Medications Medication Instructions Recorded Confirmed Type cholecalciferol (vitamin D3) 50 2,000 unit PO DAILY 02/08/19 12/07/24 History mcg (2,000 unit) capsule (Vitamin D3) omega 0-bte-ibt-fish oil 1,000 mg 1 cap PO DAILY 02/08/19 12/07/24 History (120 mg-180 mg) capsule (Fish Oil) Allergies Allergy/AdvReac Type Severity Reaction Status Date / Time codeine [CODEINE] Allergy Unknown INABILITY Verified 11/04/21 09:01 TO SLEEP Review of Systems Review of Systems ROS: Yes All systems reviewed with the patient and are negative except as otherwise documented Exam Vital Signs (past 8 hours): - 12/07/24 10:58 Temperature 99 F Pulse Rate 57 L Respiratory Rate 14 Blood Pressure 114/64 Pulse Oximetry 97 Oxygen Delivery Method Room Air Oxygen Delivery Method Room Air Assessment & Plan Assessment and plan (1) Personal history of colonic polyps: Status: Acute Assessment & Plan narrative: Patient presents for colonoscopy Risks, benefits, alternatives to colonoscopy explained, including but not limited to bowel perforation or other serious complication requiring surgery at less than 1 in 5000 colonoscopies, abdominal pain, cramping or bleeding and less than 1% of colonoscopies, and the chances that we find a diagnosis that would require further intervention of about 2%. Patient agrees to proceed. Time-Based Coding :: [TOTAL MINUTES] spent with patient and on the chart (including review of chart, obtaining history, exam, reviewing outside data, placing orders, documenting exam and treatment plan, and counseling patient) on [DATE]. PROFEE Machine Long Goods Helper Document charge(s): No
[2024-12-07 11:50] VITALS: BP 93/44; PULSE 61; RESP 18; TEMP 36.8; O2SAT 94
--- NOTE | 2024-12-07 11:50 | PM.OP.COLON ---
Operative Date/Time/Diagnoses Date of procedure: 12/07/24 Time of procedure: 11:50 Pre-op diagnosis: Personal history of polyps Post-op diagnosis: same Procedure & Clinicians Study performed: Colonoscopy with cold snare polypectomy Same procedure as scheduled: Yes Indications: Personal history of polyps Surgeon: Cory Blancas Procedure Notes SCOAP/Timeout: Performed Procedure in detail: Time-out was performed. Mac was induced. Patient was placed in left lateral decubitus position. The perineum was inspected without any gross abnormality. Lubricated pediatric colonoscope was inserted and advanced to the cecum. The terminal ileum was intubated. The colonoscope was withdrawn slowly inspecting the circumference of the colon. Small, benign-appearing polyp was noted in the ascending colon. This was removed completely with cold snare polypectomy and retrieved. Very small polyps may have been missed, prep quality was adequate. Retroflexed view of the rectum showed small, non prolapsed nonbleeding internal hemorrhoids. The scope was withdrawn the patient was taken to PACU in good condition. Scope withdrawal time: 6 Sedation minutes: 10 Findings: polyp(s) Specimen(s): other (1. Ascending colon polyp) Complications: none Post-procedure Recommendations: Colonoscopy in 5 years (Next colonoscopy in 5-7 years) Follow up: as needed Disposition: PACU
[2024-12-07 11:55] VITALS: BP 91/48; PULSE 56; RESP 17; O2SAT 94
[2024-12-07 12:00] VITALS: BP 76/45; PULSE 57; RESP 12; O2SAT 98
[2024-12-07 12:05] VITALS: BP 69/51; PULSE 57; RESP 11; TEMP 36.2; O2SAT 99
[2024-12-07 12:11] VITALS: BP 97/68; PULSE 55; RESP 14; O2SAT 98
== END 2024-12-07 12:29 | disposition home or self-care (01) ==
PROVIDERS: PCP Physician Assistant; Referring Provider Surgery; Visit Provider Surgery
PROC: 0DJD8ZZ Inspection of Lower Intestinal Tract, Via Natural or Artificial Opening Endoscopic (ICD-10-PCS; CPT 45378; principal; 2024-12-07 10:45)
DX: Z12.11 Encounter for screening for malignant neoplasm of colon (principal); Z86.0100 Personal history of colon polyps, unspecified; K64.8 Other hemorrhoids; K63.5 Polyp of colon
CPT/HCPCS: 45385; J2704

== ENCOUNTER → 2025-01-25 17:36 | Outpatient (CLI) | payer MEDICARE, OTHER, SELFPAY ==
--- NOTE | 2025-01-25 17:39 | DI.MG.S_ITS ---
MM screening mammo BI: 01/25/2025. BI-RADS: 1 CLINICAL: 74-year old female for bilateral screening mammogram. Tyrer-Cuzick lifetime risk of 7.3%. Current reported family history of breast cancer: mother. PRIOR EXAMS 01/20/2024, 01/18/2023, 12/16/2021, 12/27/2020, 12/20/2019, 12/13/2018. MAMMOGRAPHY TECHNIQUE: 2D and 3D (tomosynthesis) digital mammographic views obtained, with additional images as needed for full coverage. Current study was also evaluated with a Computer Aided Detection (CAD) system. DENSITY C. The breasts are heterogeneously dense, which may obscure small masses. MAMMOGRAPHY FINDINGS Bilateral: No suspicious mass, asymmetry, microcalcification, or other abnormality seen. No significant change from comparison. IMPRESSION: * No evidence of malignancy. RECOMMENDATIONS Bilateral * Annual screening mammography. OVERALL ASSESSMENT CATEGORY BI-RADS-1: Negative. The [employer] recommends annual screening mammography beginning at age 40 for women with average risk of breast cancer. ELECTRONICALLY SIGNED: Mady Tamayo M.D. on 01/26/2025 at 02:07:42 PM PT Interpreting Station ID: [id number]
== END ==
PROVIDERS: PCP Physician Assistant; Referring Provider Physician Assistant; Visit Provider Physician Assistant
DX: Z12.31 Encounter for screening mammogram for malignant neoplasm of breast (principal); Z80.3 Family history of malignant neoplasm of breast; R92.333 Mammographic heterogeneous density, bilateral breasts
CPT/HCPCS: 77063; 77067

== ENCOUNTER → 2025-07-06 09:51 | Outpatient (CLI) | payer MEDICARE, OTHER, SELFPAY ==
--- NOTE | 2025-07-06 09:53 | DI.RAD.S_ITS ---
PROCEDURE: XR LUMBAR SPINE 2-3V INDICATIONS: worsening back pain TECHNIQUE: 3 views of the lumbar spine were acquired. COMPARISON: None. FINDINGS: Bones: 5 aah-kok-vywadgs vertebrae are present. There is normal bony alignment. Moderate to severe L5-S1 and mild to moderate L1-L2 and L2-L3 disc height loss with adjacent endplate sclerosis and multilevel anterior osteophytosis. No vertebral body compression fractures. No suspicious bony lesions. Soft tissues: Overlying bowel gas pattern is normal. No suspicious soft tissue calcifications. IMPRESSION: Degenerative change of the lumbar spine without evidence of acute bony abnormality. Dictated by: Bradley Montgomery M.D. on 07/09/2025 at 5:45 Approved by: Bradley Montgomery M.D. on 07/09/2025 at 5:45
--- NOTE | 2025-07-06 09:53 | DI.RAD.S_ITS ---
PROCEDURE: XR PELVIS 1-2V INDICATIONS: worsening back pain TECHNIQUE: Single AP view of the pelvis acquired. COMPARISON: None. FINDINGS: Bones: No fractures or dislocations. 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 No suspicious bony lesions. Soft tissues: Visualized bowel gas pattern is normal. Probable calcified uterine fibroid within the central pelvis measuring 3.2 cm. IMPRESSION: Degenerative change of the bilateral hips without evidence of acute bony abnormality. Dictated by: Bradley Montgomery M.D. on 07/09/2025 at 5:47 Approved by: Bradley Montgomery M.D. on 07/09/2025 at 5:48
== END ==
PROVIDERS: PCP Family Medicine; Referring Provider Family Medicine; Visit Provider Family Medicine
DX: S39.012A Strain of muscle, fascia and tendon of lower back, initial encounter (principal); M54.50 Low back pain, unspecified
CPT/HCPCS: 72100; 72170

== ENCOUNTER → 2025-07-21 14:35 | Outpatient (CLI) | payer MEDICARE, OTHER, SELFPAY ==
--- NOTE | 2025-07-21 14:38 | DI.MRI.S_ITS ---
PROCEDURE: MR LUMBAR SPINE WO CON INDICATIONS: lower back pain TECHNIQUE: Noncontrast sagittal T1 spin echo and T2 fast echo, sagittal STIR, and T2 fast spin echo through the lumbar spine. In cases with scoliosis, additional coronal T2 fast spin echo may be performed. COMPARISON: [facility], CR, XR LUMBAR SPINE 2-3V, 07/06/2025, 9:05. FINDINGS: Image quality: Excellent. Alignment and Curvature: There is minimal retrolisthesis seen at L2-L3. Bone Marrow: Scattered foci are seen, which are hyperintense on T1-weighted and T2-weighted imaging, which are most consistent with benign vertebral body hemangiomas. Fatty metaplasia is seen involving the sacrum and the posterior medial iliac bones. No acute vertebral body compression fractures. Spinal Cord: Conus medullaris terminates at the L1 level. Visualized cord demonstrates normal signal and size. Paraspinous Soft Tissues: No paravertebral masses. T12-L1: Normal appearance. L1-L2: Mild loss of disc height is seen. Loss of disc signal is seen. Bridging endplate osteophytes are seen. Mild generalized disc bulge is seen. There is a superimposed central disc protrusion. There is a focal annular fissure seen posteriorly. No neural foraminal narrowing or central canal narrowing can be seen. L2-L3: The disc height is well-preserved. Loss of disc signal is seen at this level. Mild generalized disc bulge is seen. There is a superimposed central disc protrusion. Mild facet joint hypertrophy is seen. No significant neural foraminal or central canal narrowing can be seen. L3-L4: The disc height is well-preserved. Loss of disc signal is seen at this level. Mild to moderate disc bulge is seen, which is eccentric to the right, with a right foraminal disc protrusion. Moderate facet joint hypertrophy is seen. Mild bilateral neural foraminal narrowing is seen. Moderate central canal narrowing is seen. L4-L5: The disc height is well-preserved. Loss of disc signal is seen at this level. Mild generalized disc bulge is seen. There is a superimposed central disc protrusion. Moderate facet joint hypertrophy is seen. There is [id number] right-sided and moderate left-sided neural foraminal narrowing. Mild central canal narrowing is seen. L5-S1: Mild loss of disc height is seen. Loss of disc signal is seen. Mild generalized disc bulge is seen. There is a disc osteophyte protrusion seen on the left side laterally, as on series 5, image 31. Mild facet joint hypertrophy is seen. No neural foraminal narrowing or central canal narrowing can be seen. IMPRESSION: Scattered levels of lumbar spine degenerative change can be seen. Dictated by: Edwin Holman M.D. on 07/23/2025 at 9:30 Approved by: Edwin Holman M.D. on 07/23/2025 at 9:34
== END ==
LOC: MRI 14:37
PROVIDERS: Family Provider Family Medicine; PCP Family Medicine; Referring Provider Family Medicine; Visit Provider Family Medicine
DX: S39.012A Strain of muscle, fascia and tendon of lower back, initial encounter (principal); M47.816 Spondylosis without myelopathy or radiculopathy, lumbar region; M47.817 Spondylosis without myelopathy or radiculopathy, lumbosacral region; X58.XXXA Exposure to other specified factors, initial encounter
CPT/HCPCS: 72148

== ENCOUNTER 2025-09-13 09:00 | Outpatient (RCR) | payer MEDICARE, OTHER, SELFPAY ==
--- NOTE | 2025-07-18 15:30 | PT.OIE ---
Current Diagnoses Pain in right hip (07/18/25) Past Medical History (Last Reviewed 07/18/25 @ 10:03 by Jeff Mendez DO) Chronic hip pain, bilateral Lower back pain Lumbar strain Osteopenia Personal history of colonic polyps Preventative health care Right hip pain Visit Care Team Role Provider Type Jeff Mendez DO Attending Provider Physician Family Provider Other Providers Primary Care Provider Referring Provider Specialty: Family Practice Address: [address] [place] [address] Email: [email or web address] Physical Therapy Initial Evaluation PT OP: Lower Back/Lower Extremity Start: 07/18/25 13:48 Freq: Status: Active Protocol: Document 07/18/25 13:48 RANDALL (Rec: 07/18/25 15:28 RANDALL [id number]) Out-Patient Physical Therapy Visit Information Visit Information Visit Type Initial Evaluation Visit Start Time 13:50 Visit Stop Time 14:35 Visit Number 1 Number of PHP WORDPRESS DEVELOPER Visits 0 Progress Note Due 08/17/25 OP-PT Subjective Patient Comments Patient Comments History of current diagnosis: Patient reports to PT with complaints of low back pain that started about one month ago. She reports the pain started insideously. She first started to notice the pain one morning. She reports that today was the best in a few weeks in terms of pain levels. 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 Physical activities/ hobbies: Walks about 2 miles per day, gardening, paddleboard, hiking Pain location: R low back, down R postero-lateral leg Pain description: constant Pain 0-10/10 (current): 4/10 Pain 0-10/10 (worst): 8/10 - woke up with this level pain Pain 0-10/10 (best): 3/10 Aggravating: stretching leg, sitting for extended periods, standing for extended periods Alleviating: walking, standing up Function prior to injury: Independent with all ADLs Function current: Independent with all ADLs - limited with standing for extended periods, sitting extended periods Patient goals: Reduce pain levels, improve mobility Lumbar Spine Range of Motion Lumbar Spine Active Comments Repeated movement testing: Flexion: No centralization or perihperalization Extension: No centralization or peripheralization ROM: Flexion: Limited, pain reproduction Extension: WFL Side bending R: WFL Side bending L: WFL Rotation L: WFL Rotation R: WFL Pain reproduction on L low back Movement screen: Squat: Reduced depth Hinge: Pain reproduction with full depth Hip Goniometric Range of Motion Hip Right Hip ROM WFL Yes Flexion w/Knee 130 Flexed Internal Rotation 20 External Rotation 40 Left Hip ROM WFL Yes Flexion w/Knee 130 Flexed Internal Rotation 20 External Rotation 40 Special Tests Lumbar Spine Special Tests SLR Test Results Negative bilaterally Physical Therapy Assessment Rehab Potential Rehabilitation Good Potential Evaluation Complexity Number of Personal 0 Factors/ Comorbidities Number of Body 1-2 Systems Impaired Clinical Stable Presentation at Evaluation Impairments Impairments Activity Tolerance,Functional Activities,Functional Mobility,Pain,ROM,Strength Goals Three Impairment General function Short Term Goal (STG Patient will demonstrate an increase in LEFS score to ) 73 in order to show an increase in self-perceived function. STG Duration 3 weeks Director Of Guidance Goal (LTG) Patient will demonstrate an increase in LEFS score to 73 in order to show an increase in self-perceived function. LTG Duration 6 weeks 2 Impairment Lumbar load tolerance Short Term Goal (STG Patient will lift 20# from the ground with no increase ) in pain levels in order to better function with lifting from the ground. STG Duration 3 weeks Director Of Guidance Goal (LTG) Patient will lift 40# from the ground with no increase in pain levels in order to better function with lifting from the ground. LTG Duration 6 weeks One Impairment Pain intensity Short Term Goal (STG Patient will report a reduction in pain at worst to a 6 ) /10 in order to better function with sleeping through the night. STG Duration 3 weeks Director Of Guidance Goal (LTG) Patient will report a reduction in pain at worst to a 4 /10 in order to better function with sleeping through the night. LTG Duration 6 weeks Assessment Summary Assessment Patient presenting to PT with complaints of acute low back pain. Functional deficits include walking for extended distances, sitting for extended periods, and sleeping through the night. Objective investigation revealed deficits and pain reproduction with lumbar ROM (See objective measures: R rotation, flexion), pain reproduction with standing hip hinge. Radicular symptoms were not produced at today's evaluation however previous reports of this along with clinical presentation are consistent with acute lumbar radiculopathy. Patient will benefit from PT to address deficits and return to prior level of function. Physical Therapy Plan Frequency and Duration Frequency of 2x/Week Treatment Duration of 12 treatment (weeks) Plan of Care Start 07/18/25 Plan of Care End 10/16/25 Date Therapeutic Interventions Therapeutic Balance Training,Coordination Training,Gait Training, Interventions Home Exercise Program,Joint Mobilizations,Manual Therapy,Neuromuscular Re-education,Patient/Caregiver Education,Self-Care/Home Management,Soft Tissue Mobilization,Taping,Therapeutic Activities,Therapeutic Exercises Modalities Cold Pack/Ice Massage,Electric Stimulation,Hot Packs, Iontophoresis,Traction- Mechanical,Ultrasound, Vasopneumatic Devices Next Visit Focus/Plan Next Note Type Treatment Note Next Visit Plan Add seated hip hinge, standing hip hinge, sit to stands , nerve glides. Follow up on home exercise program. Access Code: [email or web address] URL: [email or web address] Date: 07/18/2025 Prepared by: Sheryl Mcdermott Exercises - Cat Cow - 1 x daily - 7 x weekly - 3 sets - 10 reps - 3 hold - Seated Lumbar Flexion Stretch - 1 x daily - 7 x weekly - 3 sets - 10 reps - 3 hold - Seated Trunk Rotation - Arms Crossed - 1 x daily - 7 x weekly - 3 sets - 10 reps - 3 hold
--- NOTE | 2025-07-18 15:33 | PT.OPPOC ---
Physical, Occupational & Speech Therapy At [facility] Current Diagnoses Pain in right hip (07/18/25) Visit Care Team Role Provider Type Jeff Mendez DO Attending Provider Physician Family Provider Other Providers Primary Care Provider Referring Provider Specialty: Family Practice Address: [address] [place] [address], [facility] Email: [email or web address] Plan Of Care PT OP: Lower Back/Lower Extremity Start: 07/18/25 13:48 Freq: Status: Active Protocol: Document 07/18/25 13:48 RANDALL (Rec: 07/18/25 15:28 RANDALL [id number]) Out-Patient Physical Therapy Visit Information Visit Information Visit Type Initial Evaluation Visit Start Time 13:50 Visit Stop Time 14:35 Visit Number 1 Number of JIG BORE OPERATOR Visits 0 Progress Note Due 08/17/25 OP-PT Subjective Patient Comments Patient Comments History of current diagnosis: Patient reports to PT with complaints of low back pain that started about one month ago. She reports the pain started insideously. She first started to notice the pain one morning. She reports that today was the best in a few weeks in terms of pain levels. 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 Physical activities/ hobbies: Walks about 2 miles per day, gardening, paddleboard, hiking Pain location: R low back, down R postero-lateral leg Pain description: constant Pain 0-10/10 (current): 4/10 Pain 0-10/10 (worst): 8/10 - woke up with this level pain Pain 0-10/10 (best): 3/10 Aggravating: stretching leg, sitting for extended periods, standing for extended periods Alleviating: walking, standing up Function prior to injury: Independent with all ADLs Function current: Independent with all ADLs - limited with standing for extended periods, sitting extended periods Patient goals: Reduce pain levels, improve mobility Lumbar Spine Range of Motion Lumbar Spine Active Comments Repeated movement testing: Flexion: No centralization or perihperalization Extension: No centralization or peripheralization ROM: Flexion: Limited, pain reproduction Extension: WFL Side bending R: WFL Side bending L: WFL Rotation L: WFL Rotation R: WFL Pain reproduction on L low back Movement screen: Squat: Reduced depth Hinge: Pain reproduction with full depth Hip Goniometric Range of Motion Hip Measured in Degrees Right Hip ROM WFL Yes Flexion w/Knee 130 Flexed Internal Rotation 20 External Rotation 40 Left Hip ROM WFL Yes Flexion w/Knee 130 Flexed Internal Rotation 20 External Rotation 40 Special Tests Lumbar Spine Special Tests SLR Test Results Negative bilaterally Physical Therapy Assessment Rehab Potential Rehabilitation Good Potential Evaluation Complexity Number of Personal 0 Factors/ Comorbidities Number of Body 1-2 Systems Impaired Clinical Stable Presentation at Evaluation Impairments Impairments Activity Tolerance,Functional Activities,Functional Mobility,Pain,ROM,Strength Goals Three Impairment General function Short Term Goal (STG Patient will demonstrate an increase in LEFS score to ) 73 in order to show an increase in self-perceived function. STG Duration 3 weeks Correction Goal (LTG) Patient will demonstrate an increase in LEFS score to 73 in order to show an increase in self-perceived function. LTG Duration 6 weeks 2 Impairment Lumbar load tolerance Short Term Goal (STG Patient will lift 20# from the ground with no increase ) in pain levels in order to better function with lifting from the ground. STG Duration 3 weeks Correction Goal (LTG) Patient will lift 40# from the ground with no increase in pain levels in order to better function with lifting from the ground. LTG Duration 6 weeks One Impairment Pain intensity Short Term Goal (STG Patient will report a reduction in pain at worst to a 6 ) /10 in order to better function with sleeping through the night. STG Duration 3 weeks Land Title Examiner Goal (LTG) Patient will report a reduction in pain at worst to a 4 /10 in order to better function with sleeping through the night. LTG Duration 6 weeks Assessment Summary Assessment Patient presenting to PT with complaints of acute low back pain. Functional deficits include walking for extended distances, sitting for extended periods, and sleeping through the night. Objective investigation revealed deficits and pain reproduction with lumbar ROM (See objective measures: R rotation, flexion), pain reproduction with standing hip hinge. Radicular symptoms were not produced at today's evaluation however previous reports of this along with clinical presentation are consistent with acute lumbar radiculopathy. Patient will benefit from PT to address deficits and return to prior level of function. Physical Therapy Plan Frequency and Duration Frequency of 2x/Week Treatment Duration of 12 treatment (weeks) Plan of Care Start 07/18/25 Date Plan of Care End 10/16/25 Date Therapeutic Interventions Therapeutic Balance Training,Coordination Training,Gait Training, Interventions Home Exercise Program,Joint Mobilizations,Manual Therapy,Neuromuscular Re-education,Patient/Caregiver Education,Self-Care/Home Management,Soft Tissue Mobilization,Taping,Therapeutic Activities,Therapeutic Exercises Modalities Cold Pack/Ice Massage,Electric Stimulation,Hot Packs, Iontophoresis,Traction- Mechanical,Ultrasound, Vasopneumatic Devices Next Visit Focus/Plan Next Note Type Treatment Note Next Visit Plan Add seated hip hinge, standing hip hinge, sit to stands , nerve glides. Follow up on home exercise program. Access Code: [email or web address] URL: [email or web address] Date: 07/18/2025 Prepared by: Sheryl Mcdermott Exercises - Cat Cow - 1 x daily - 7 x weekly - 3 sets - 10 reps - 3 hold - Seated Lumbar Flexion Stretch - 1 x daily - 7 x weekly - 3 sets - 10 reps - 3 hold - Seated Trunk Rotation - Arms Crossed - 1 x daily - 7 x weekly - 3 sets - 10 reps - 3 hold Plan of Care Dates Plan of Care Start Date 07/18/25 Plan of Care End Date 10/16/25 Electronically Signed by: Sheryl Mcdermott, PT 07/18/25 6127 If you are in agreement with this Plan of Care, please return a signed and dated copy. I have reviewed this Plan of Care and certify that the skilled therapy services above are required to meet the patient?s needs. Physician Signature Date Printed Name and Credentials Clinical Instructor Signature Printed Name and Credentials
--- NOTE | 2025-07-20 10:57 | PT.OTN ---
Current Diagnoses Pain in right hip (07/20/25) Physical Therapy Treatment Note PT OP: Lower Back/Lower Extremity Start: 07/18/25 13:48 Freq: Status: Active Protocol: Document 07/20/25 08:56 RANDALL (Rec: 07/20/25 10:57 RANDALL [id number]) Out-Patient Physical Therapy Visit Information Visit Information Visit Type Treatment Note Visit Start Time 09:45 Visit Stop Time 10:25 Visit Number 2 Number of SPACE CONTROL AGENT Visits 0 Progress Note Due 08/17/25 OP-PT Subjective Patient Comments Patient Comments Patient reports she had some increased pain yesterday morning. She reports today her pain levels are better. Her current pain level is a 2/10. Therapeutic Exercises Prone Exercises Cat cow Reps/Minutes x30 Sitting Exercises Hip abduction machine Resistance 10# Reps/Minutes 3x10 Sciatic nerve glides Resistance x30 Reps/Minutes 3x10 Seated hip hinge Reps/Minutes x30 Comments cues for lumbo-pelvic mechanics seated lumbar flexion Reps/Minutes x30 Standing Exercises Standing hinge Side bilateral Equipment Used table for UE support Reps/Minutes 3x10 Comments cues for posterior hip translation and weight shift Seated rotation Side bilateral Reps/Minutes x30 Physical Therapy Assessment Goals Three Impairment General function Short Term Goal (STG Patient will demonstrate an increase in LEFS score to ) 73 in order to show an increase in self-perceived function. STG Duration 3 weeks Dean Of Faculty Goal (LTG) Patient will demonstrate an increase in LEFS score to 73 in order to show an increase in self-perceived function. LTG Duration 6 weeks 2 Impairment Lumbar load tolerance Short Term Goal (STG Patient will lift 20# from the ground with no increase ) in pain levels in order to better function with lifting from the ground. STG Duration 3 weeks Dean Of Faculty Goal (LTG) Patient will lift 40# from the ground with no increase in pain levels in order to better function with lifting from the ground. LTG Duration 6 weeks One Impairment Pain intensity Short Term Goal (STG Patient will report a reduction in pain at worst to a 6 ) /10 in order to better function with sleeping through the night. STG Duration 3 weeks Snf Goal (LTG) Patient will report a reduction in pain at worst to a 4 /10 in order to better function with sleeping through the night. LTG Duration 6 weeks Assessment Summary Assessment Treatment focused on lumbar and hip mobility and gentle hip strengthening. Patient tolerated treatment well with no lasting increases in pain levels. She noted sharp increases in pain with standing hinge and hip abduction machine at end ranges of motion that improved with more repetitions and resolved with rest breaks. Plan next session to follow up on response to today's session and home exercises and progress as appropriate. Physical Therapy Plan Frequency and Duration Frequency of 2x/Week Treatment Duration of 12 treatment (weeks) Plan of Care Start 07/18/25 Date Plan of Care End 10/16/25 Date Next Visit Focus/Plan Next Note Type Treatment Note Next Visit Plan Add seated hip hinge, standing hip hinge, sit to stands , nerve glides. Follow up on home exercise program. Access Code: [email or web address] URL: [email or web address] Date: 07/20/2025 Prepared by: Sheryl Mcdermott Exercises - Cat Cow - 1 x daily - 7 x weekly - 3 sets - 10 reps - 3 hold - Seated Lumbar Flexion Stretch - 1 x daily - 7 x weekly - 3 sets - 10 reps - 3 hold - Seated Trunk Rotation - Arms Crossed - 1 x daily - 7 x weekly - 3 sets - 10 reps - 3 hold - Seated Hip Hinge - 1 x daily - 7 x weekly - 3 sets - 10 reps - 3 hold - Standing Hip Hinge - 1 x daily - 7 x weekly - 3 sets - 10 reps - 3 hold
--- NOTE | 2025-07-25 14:10 | PT.OTN ---
Current Diagnoses Pain in right hip (07/25/25) Physical Therapy Treatment Note PT OP: Lower Back/Lower Extremity Start: 07/18/25 13:48 Freq: Status: Active Protocol: Document 07/25/25 11:27 RANDALL (Rec: 07/25/25 14:10 RANDALL [id number]) Out-Patient Physical Therapy Visit Information Visit Information Visit Type Treatment Note Visit Start Time 11:30 Visit Stop Time 12:10 Visit Number 3 Number of MAINTENANCE FITTER Visits 0 Progress Note Due 08/17/25 OP-PT Subjective Patient Comments Patient Comments Patient reports her pain is much better today. She reports she had some symptoms the day after her last session but the symptoms subsided and she has had minimal pain since. She reports she has been doing her home exercises consistently. Therapeutic Exercises Supine Exercises Supine hip hikes Side bilateral Reps/Minutes x20 each side Prone Exercises Cat cow Reps/Minutes x30 Sitting Exercises Hip abduction machine Resistance up to 20# Reps/Minutes 3x10 Comments Staying in pain-free ranges Sciatic nerve glides Reps/Minutes 2x15 each side Seated hip hinge Reps/Minutes x30 Comments cues for lumbo-pelvic mechanics seated lumbar flexion Reps/Minutes x20 Standing Exercises SLDL Standing Exercise Single leg kickstand deadlift Name Resistance BW Reps/Minutes x10 each side Comments Cues for posterior hip translation Standing hip hikes Reps/Minutes 2x10 each side Comments cues for hip elevation Standing hinge Side bilateral Equipment Used table for UE support Reps/Minutes 3x10 Comments cues for posterior hip translation and weight shift Seated rotation Side bilateral Reps/Minutes x30 Physical Therapy Assessment Goals Three Impairment General function Short Term Goal (STG Patient will demonstrate an increase in LEFS score to ) 73 in order to show an increase in self-perceived function. STG Duration 3 weeks Prison Goal (LTG) Patient will demonstrate an increase in LEFS score to 73 in order to show an increase in self-perceived function. LTG Duration 6 weeks 2 Impairment Lumbar load tolerance Short Term Goal (STG Patient will lift 20# from the ground with no increase ) in pain levels in order to better function with lifting from the ground. STG Duration 3 weeks Prison Goal (LTG) Patient will lift 40# from the ground with no increase in pain levels in order to better function with lifting from the ground. LTG Duration 6 weeks One Impairment Pain intensity Short Term Goal (STG Patient will report a reduction in pain at worst to a 6 ) /10 in order to better function with sleeping through the night. STG Duration 3 weeks Prison Goal (LTG) Patient will report a reduction in pain at worst to a 4 /10 in order to better function with sleeping through the night. LTG Duration 6 weeks Assessment Summary Assessment Treatment focused on lumbar and hip mobility along with progressive hip loading. Patient tolerated treatment well with no lasting increases in pain levels. She noted increased pain levels with standing hip hike and hip abduction machine that subsided with rest. Plan next session to follow up on home exercises and symptoms and progress loading as tolerate. Physical Therapy Plan Frequency and Duration Frequency of 2x/Week Treatment Duration of 12 treatment (weeks) Plan of Care Start 07/18/25 Date Plan of Care End 10/16/25 Date Next Visit Focus/Plan Next Visit Plan Continue with current exercise prescription. Progress loads as tolerated. Access Code: [email or web address] URL: [email or web address] Date: 07/20/2025 Prepared by: Sheryl Mcdermott Exercises - Cat Cow - 1 x daily - 7 x weekly - 3 sets - 10 reps - 3 hold - Seated Lumbar Flexion Stretch - 1 x daily - 7 x weekly - 3 sets - 10 reps - 3 hold - Seated Trunk Rotation - Arms Crossed - 1 x daily - 7 x weekly - 3 sets - 10 reps - 3 hold - Seated Hip Hinge - 1 x daily - 7 x weekly - 3 sets - 10 reps - 3 hold - Standing Hip Hinge - 1 x daily - 7 x weekly - 3 sets - 10 reps - 3 hold
--- NOTE | 2025-07-31 10:32 | PT.OTN ---
Current Diagnoses Pain in right hip (07/31/25) Physical Therapy Treatment Note PT OP: Lower Back/Lower Extremity Start: 07/18/25 13:48 Freq: Status: Active Protocol: Document 07/31/25 09:50 AB (Rec: 07/31/25 10:30 AB [id number]) Out-Patient Physical Therapy Visit Information Visit Information Visit Type Treatment Note Visit Note Visit [email or web address] Access [email or web address]: [email or web address] Visit Start Time 09:50 Visit Stop Time 10:21 Visit Number 4 Number of AVIONICS REPAIR TECHNICIAN Visits 1 Progress Note Due 08/17/25 OP-PT Subjective Patient Comments Patient Comments Patient reports she is much better, cannot hip hike R hip. Patient reports she is sleeping all night. Therapeutic Exercises Supine Exercises breathing from diaphragm Supine Exercise Name L LE on bolster and folded pillow R LE on mat for illiopsoas stretch Reps/Minutes 2 min Comments verbal and tactile cues Modified William Side bilateral Reps/Minutes not jeff L or R LE, Comments verbal cues Supine hip hikes Side right Reps/Minutes x10 each side Comments verbal cues, minimal mvt Sidelying Exercises clamshell Equipment Used X 15 each side Comments verbal and tactile cues reverse clamshell Reps/Minutes X 15 each side Comments verbal and tactile cues at core Standing Exercises Standing hip hikes Side right Reps/Minutes X 2 X 2 Comments Unable Manual Therapy Treatment Consent Patient gave verbal Yes consent for manual treatment Soft Tissue Mobilization B glute/piriformis and illiopsoas Mobilization Type Cross-Friction,Rolling Intensity/Depth Moderate Body Position Hooklying Comments and sidelying Physical Therapy Assessment Goals Three Impairment General function Short Term Goal (STG Patient will demonstrate an increase in LEFS score to ) 73 in order to show an increase in self-perceived function. STG Duration 3 weeks Route Sales Manager Goal (LTG) Patient will demonstrate an increase in LEFS score to 73 in order to show an increase in self-perceived function. LTG Duration 6 weeks 2 Impairment Lumbar load tolerance Short Term Goal (STG Patient will lift 20# from the ground with no increase ) in pain levels in order to better function with lifting from the ground. STG Duration 3 weeks Prison Goal (LTG) Patient will lift 40# from the ground with no increase in pain levels in order to better function with lifting from the ground. LTG Duration 6 weeks One Impairment Pain intensity Short Term Goal (STG Patient will report a reduction in pain at worst to a 6 ) /10 in order to better function with sleeping through the night. STG Duration 3 weeks Route Sales Manager Goal (LTG) Patient will report a reduction in pain at worst to a 4 /10 in order to better function with sleeping through the night. LTG Duration 6 weeks Assessment Summary Assessment Patient reports feeling fine end of session, able to perform minimal hip hinge in supine, unable in standing . Physical Therapy Plan Frequency and Duration Frequency of 2x/Week Treatment Duration of 12 treatment (weeks) Plan of Care Start 07/18/25 Plan of Care End 10/16/25 Date Therapeutic Interventions Therapeutic Balance Training,Coordination Training,Gait Training, Interventions Home Exercise Program,Joint Mobilizations,Manual Therapy,Neuromuscular Re-education,Patient/Caregiver Education,Self-Care/Home Management,Soft Tissue Mobilization,Taping,Therapeutic Activities,Therapeutic Exercises Modalities Cold Pack/Ice Massage,Electric Stimulation,Hot Packs, Iontophoresis,Traction- Mechanical,Ultrasound, Vasopneumatic Devices Next Visit Focus/Plan Next Note Type Treatment Note Next Visit Plan Continue with current exercise prescription. Progress loads as tolerated. Access Code: [email or web address] URL: [email or web address] Date: 07/20/2025 Prepared by: Sheryl Mcdermott Exercises - Cat Cow - 1 x daily - 7 x weekly - 3 sets - 10 reps - 3 hold - Seated Lumbar Flexion Stretch - 1 x daily - 7 x weekly - 3 sets - 10 reps - 3 hold - Seated Trunk Rotation - Arms Crossed - 1 x daily - 7 x weekly - 3 sets - 10 reps - 3 hold - Seated Hip Hinge - 1 x daily - 7 x weekly - 3 sets - 10 reps - 3 hold - Standing Hip Hinge - 1 x daily - 7 x weekly - 3 sets - 10 reps - 3 hold
--- NOTE | 2025-08-02 12:33 | PT.OTN ---
Current Diagnoses Pain in right hip (08/02/25) Physical Therapy Treatment Note PT OP: Lower Back/Lower Extremity Start: 07/18/25 13:48 Freq: Status: Active Protocol: Document 08/02/25 07:29 AB (Rec: 08/02/25 08:19 AB [id number]) Out-Patient Physical Therapy Visit Information Visit Information Visit Type Treatment Note Visit Start Time 07:33 Visit Stop Time 08:17 Visit Number 5 Number of MEDICATION SPECIALIST Visits 2 Progress Note Due 08/17/25 OP-PT Subjective Patient Comments Patient Comments Patient unable to hip hike R hip in standing, normal hip hike on L in standing. Patient reports she is sleeping until 6:00 am now, sleeping is much better. SLS 6 sec L 4 sec R Therapeutic Exercises Supine Exercises piriformis Supine Exercise Name fig 4 and knee to opp shoulder Reps/Minutes 60 sec each LE each stretch Comments verbal cues Modified William Side bilateral Reps/Minutes 60 sec each LE with AROM knee flexion X 10 Comments verbal cues Pt ed importance of opp LE to chest Sitting Exercises glute med isometric Reps/Minutes One min each LE Comments verbal and visual cues sit to stand with hip hinge Sitting Exercise HEP Name Reps/Minutes 2 X10 Comments Pt ed self tactile cues for hip hinge Manual Therapy Treatment Consent Patient gave verbal Yes consent for manual treatment Soft Tissue Mobilization B glute/piriformis and illiopsoas Mobilization Type Cross-Friction,Rolling Intensity/Depth Moderate Body Position Hooklying Comments and sidelying Manual Techniques MET R AI L PI Comments 6 X 6 sec for pubic shotgun and R AI L PI Physical Therapy Assessment Goals Three Impairment General function Short Term Goal (STG Patient will demonstrate an increase in LEFS score to ) 73 in order to show an increase in self-perceived function. STG Duration 3 weeks Train Master Goal (LTG) Patient will demonstrate an increase in LEFS score to 73 in order to show an increase in self-perceived function. LTG Duration 6 weeks 2 Impairment Lumbar load tolerance Short Term Goal (STG Patient will lift 20# from the ground with no increase ) in pain levels in order to better function with lifting from the ground. STG Duration 3 weeks Penitentiary Goal (LTG) Patient will lift 40# from the ground with no increase in pain levels in order to better function with lifting from the ground. LTG Duration 6 weeks One Impairment Pain intensity Short Term Goal (STG Patient will report a reduction in pain at worst to a 6 ) /10 in order to better function with sleeping through the night. STG Duration 3 weeks Train Master Goal (LTG) Patient will report a reduction in pain at worst to a 4 /10 in order to better function with sleeping through the night. LTG Duration 6 weeks Assessment Summary Assessment Patient able to perform sit to stand with improved hip hinge post training. SLS L LE inc to 11 sec post glute med activation. Physical Therapy Plan Frequency and Duration Frequency of 2x/Week Treatment Duration of 12 treatment (weeks) Plan of Care Start 07/18/25 Date Plan of Care End 10/16/25 Date Next Visit Focus/Plan Next Note Type Treatment Note Next Visit Plan Continue with current exercise prescription. Progress loads as tolerated. Access Code: [email or web address] URL: [email or web address] Date: 07/20/2025 Prepared by: Sheryl Mcdermott Exercises - Cat Cow - 1 x daily - 7 x weekly - 3 sets - 10 reps - 3 hold - Seated Lumbar Flexion Stretch - 1 x daily - 7 x weekly - 3 sets - 10 reps - 3 hold - Seated Trunk Rotation - Arms Crossed - 1 x daily - 7 x weekly - 3 sets - 10 reps - 3 hold - Seated Hip Hinge - 1 x daily - 7 x weekly - 3 sets - 10 reps - 3 hold - Standing Hip Hinge - 1 x daily - 7 x weekly - 3 sets - 10 reps - 3 hold
--- NOTE | 2025-08-02 12:36 | PT.OTN ---
Current Diagnoses Pain in right hip (08/02/25) Physical Therapy Treatment Note PT OP: Lower Back/Lower Extremity Start: 07/18/25 13:48 Freq: Status: Active Protocol: Document 08/02/25 07:29 AB (Rec: 08/02/25 08:19 AB [id number]) Out-Patient Physical Therapy Visit Information Visit Information Visit Type Treatment Note Visit Start Time 07:33 Visit Stop Time 08:17 Visit Number 5 Number of CELLOPHANER Visits 2 Progress Note Due 08/17/25 OP-PT Subjective Patient Comments Patient Comments Patient unable to hip hike R hip in standing, normal hip hike on L in standing. Patient reports she is sleeping until 6:00 am now, sleeping is much better. SLS 6 sec L 4 sec R Therapeutic Exercises Supine Exercises piriformis Supine Exercise Name fig 4 and knee to opp shoulder Reps/Minutes 60 sec each LE each stretch Comments verbal cues Modified William Side bilateral Reps/Minutes 60 sec each LE with AROM knee flexion X 10 Comments verbal cues Pt ed importance of opp LE to chest Sitting Exercises glute med isometric Reps/Minutes One min each LE Comments verbal and visual cues sit to stand with hip hinge Sitting Exercise HEP Name Reps/Minutes 2 X10 Comments Pt ed self tactile cues for hip hinge Manual Therapy Treatment Consent Patient gave verbal Yes consent for manual treatment Soft Tissue Mobilization B glute/piriformis and illiopsoas Mobilization Type Cross-Friction,Rolling Intensity/Depth Moderate Body Position Hooklying Comments and sidelying Manual Techniques MET R AI L PI Comments 6 X 6 sec for pubic shotgun and R AI L PI Physical Therapy Assessment Goals Three Impairment General function Short Term Goal (STG Patient will demonstrate an increase in LEFS score to ) 73 in order to show an increase in self-perceived function. STG Duration 3 weeks Patternmaker [employer] Goal (LTG) Patient will demonstrate an increase in LEFS score to 73 in order to show an increase in self-perceived function. LTG Duration 6 weeks 2 Impairment Lumbar load tolerance Short Term Goal (STG Patient will lift 20# from the ground with no increase ) in pain levels in order to better function with lifting from the ground. STG Duration 3 weeks [facility] Goal (LTG) Patient will lift 40# from the ground with no increase in pain levels in order to better function with lifting from the ground. LTG Duration 6 weeks One Impairment Pain intensity Short Term Goal (STG Patient will report a reduction in pain at worst to a 6 ) /10 in order to better function with sleeping through the night. STG Duration 3 weeks Patternmaker [employer] Goal (LTG) Patient will report a reduction in pain at worst to a 4 /10 in order to better function with sleeping through the night. LTG Duration 6 weeks Assessment Summary Assessment Patient able to perform sit to stand with improved hip hinge post training. SLS L LE inc to 11 sec post glute med activation. Physical Therapy Plan Frequency and Duration Frequency of 2x/Week Treatment Duration of 12 treatment (weeks) Plan of Care Start 07/18/25 Date Plan of Care End 10/16/25 Date Next Visit Focus/Plan Next Note Type Treatment Note Next Visit Plan Continue with current exercise prescription. Progress loads as tolerated. Access Code: [email or web address] URL: [email or web address] Date: 07/20/2025 Prepared by: Sheryl Mcdermott Exercises - Cat Cow - 1 x daily - 7 x weekly - 3 sets - 10 reps - 3 hold - Seated Lumbar Flexion Stretch - 1 x daily - 7 x weekly - 3 sets - 10 reps - 3 hold - Seated Trunk Rotation - Arms Crossed - 1 x daily - 7 x weekly - 3 sets - 10 reps - 3 hold - Seated Hip Hinge - 1 x daily - 7 x weekly - 3 sets - 10 reps - 3 hold - Standing Hip Hinge - 1 x daily - 7 x weekly - 3 sets - 10 reps - 3 hold
--- NOTE | 2025-08-07 15:02 | PT.OTN ---
Current Diagnoses Pain in right hip (08/07/25) Physical Therapy Treatment Note PT OP: Lower Back/Lower Extremity Start: 07/18/25 13:48 Freq: Status: Active Protocol: Document 08/07/25 14:07 RANDALL (Rec: 08/07/25 15:02 RANDALL [id number]) Out-Patient Physical Therapy Visit Information Visit Information Visit Type Treatment Note Visit Start Time 14:05 Visit Stop Time 14:45 Visit Number 6 Number of EDITOR PRODUCER Visits 0 Progress Note Due 08/17/25 OP-PT Subjective Patient Comments Patient Comments Patient reports she has been doing her home exercises. Her pain had been doing better but she reports she did some gardening which flared up her symptoms again. She reports she is walking up to two miles at time. Therapeutic Exercises Supine Exercises piriformis Supine Exercise Name fig 4 and knee to opp shoulder Reps/Minutes 60 sec each LE each stretch Comments verbal cues Prone Exercises Cat cow Reps/Minutes x30 Sitting Exercises sit to stand with hip hinge Sitting Exercise HEP Name Reps/Minutes 2 X10 Comments Pt ed self tactile cues for hip hinge Hip abduction machine Resistance up to 20# Reps/Minutes 3x10 Comments Staying in pain-free ranges Seated hip hinge Reps/Minutes x30 Comments cues for lumbo-pelvic mechanics seated lumbar flexion Reps/Minutes x20 Standing Exercises SLDL Standing Exercise Single leg kickstand deadlift Name Resistance BW Reps/Minutes x10 each side Comments Cues for posterior hip translation Standing hip hikes Side right Reps/Minutes 2x10 reps, with 5 hold each rep Comments Unable Standing hinge Side bilateral Equipment Used table for UE support Reps/Minutes 3x10 Comments cues for posterior hip translation and weight shift Seated rotation Standing Exercise lumbar rotation Name Side bilateral Reps/Minutes x20 Physical Therapy Assessment Goals Three Impairment General function Short Term Goal (STG Patient will demonstrate an increase in LEFS score to ) 73 in order to show an increase in self-perceived function. STG Duration 3 weeks Prison Goal (LTG) Patient will demonstrate an increase in LEFS score to 73 in order to show an increase in self-perceived function. LTG Duration 6 weeks 2 Impairment Lumbar load tolerance Short Term Goal (STG Patient will lift 20# from the ground with no increase ) in pain levels in order to better function with lifting from the ground. STG Duration 3 weeks Real Estate Associate Goal (LTG) Patient will lift 40# from the ground with no increase in pain levels in order to better function with lifting from the ground. LTG Duration 6 weeks One Impairment Pain intensity Short Term Goal (STG Patient will report a reduction in pain at worst to a 6 ) /10 in order to better function with sleeping through the night. STG Duration 3 weeks Real Estate Associate Goal (LTG) Patient will report a reduction in pain at worst to a 4 /10 in order to better function with sleeping through the night. LTG Duration 6 weeks Assessment Summary Assessment Treatment focused on lumbar mobility and strengthening and lateral hip strengthening. Patient tolerated treatment well with no lasting increases in pain. She reported reduced symptoms with hip hinge and hip abduction machine after performing firsts sets. Plan next session to continue with exercises from today's session. Physical Therapy Plan Frequency and Duration Frequency of 2x/Week Treatment Duration of 12 treatment (weeks) Plan of Care Start 07/18/25 Date Plan of Care End 10/16/25 Date Next Visit Focus/Plan Next Visit Plan Continue with exercise prescription from today's session. Progress loads as tolerated.
--- NOTE | 2025-08-17 10:28 | PT.OPPN ---
Current Diagnoses Pain in right hip (08/17/25) Physical Therapy Progress Note PT OP: Lower Back/Lower Extremity Start: 07/18/25 13:48 Freq: Status: Active Protocol: Document 08/17/25 07:31 RANDALL (Rec: 08/17/25 10:25 JZ [id number]) Out-Patient Physical Therapy Visit Information Visit Information Visit Type Progress Note Visit Start Time 09:08 Visit Stop Time 09:48 Visit Number 7 Progress Note Due 09/16/25 OP-PT Subjective Patient Comments Patient Comments Patient reports she feels she is doing much better since starting PT. She reports that yesterday she felt she had a hitch in her gait when ambulating and she still feels her hip is very weak and causes her to feel like she may fall at times. She reports her pain is very minimal at this point and she has been. She reports the most pain she has had is 5/10 which does not last more than a few sessions. She reports her GROC is 80% since starting PT. Patient Questionnaires Lower Extremity Functional Scale LEFS Score 57 Hip Strength Hip Manual Muscle Testing Left Abduction 5 Normal Comments Abduction: 5/5 in side lying, 3+/5 in standing Therapeutic Exercises Prone Exercises Prone press up Reps/Minutes x20, 3 hold Cat cow Reps/Minutes x20 Standing Exercises Standing abduction isometric against wall Reps/Minutes x5, 5 hold SLDL Standing Exercise Single leg kickstand deadlift Name Resistance BW Reps/Minutes x10 each side Comments Cues for posterior hip translation Physical Therapy Assessment Goals Three Impairment General function Short Term Goal (STG Patient will demonstrate an increase in LEFS score to ) 73 in order to show an increase in self-perceived function. In progress (08/17/2025) STG Duration 3 weeks Retirement Goal (LTG) Patient will demonstrate an increase in LEFS score to 79 in order to show an increase in self-perceived function. In progress (08/17/2025) LTG Duration 6 weeks 2 Impairment Lumbar load tolerance Short Term Goal (STG Patient will lift 20# from the ground with no increase ) in pain levels in order to better function with lifting from the ground. In progress - 08/17/2025 STG Duration 3 weeks Automotive Window Tinter Goal (LTG) Patient will lift 40# from the ground with no increase in pain levels in order to better function with lifting from the ground. In progress - 08/17/2025 LTG Duration 6 weeks One Impairment Pain intensity Short Term Goal (STG Patient will report a reduction in pain at worst to a 6 ) /10 in order to better function with sleeping through the night. Met - 08/17/2025 STG Duration 3 weeks Automotive Window Tinter Goal (LTG) Patient will report a reduction in pain at worst to a 4 /10 in order to better function with sleeping through the night. In progress - 08/17/2025 LTG Duration 6 weeks Assessment Summary Assessment Patient presenting to PT after 6 visits for lateral hip / low back pain. Patient has made improvements with pain levels and general function (see subjective: GROC) . Additionally, patient's radicular symptoms have subsided. Patient continues to have pain that limits her function and L hip abductor weakness in standing, indicating potential nerve root irritation. Patient will continue to benefit form PT to address remaining deficits and return to full prior level of function. Physical Therapy Plan Frequency and Duration Frequency of 2x/Week Treatment Duration of 12 treatment (weeks) Plan of Care Start 07/18/25 Date Plan of Care End 10/16/25 Date Next Visit Focus/Plan Next Note Type Treatment Note Next Visit Plan Continue with exercise prescription from today's session. Progress loads as tolerated.
--- NOTE | 2025-08-22 10:43 | PT.OTN ---
Current Diagnoses Pain in right hip (08/22/25) Physical Therapy Treatment Note PT OP: Lower Back/Lower Extremity Start: 07/18/25 13:48 Freq: Status: Active Protocol: Document 08/22/25 08:41 RANDALL (Rec: 08/22/25 10:43 JAvery [id number]) Out-Patient Physical Therapy Visit Information Visit Information Visit Type Treatment Note Visit Start Time 09:55 Visit Stop Time 10:30 Visit Number 8 Progress Note Due 09/16/25 OP-PT Subjective Patient Comments Patient Comments Patient reports no changes in presentation. Therapeutic Exercises Prone Exercises Prone press up Reps/Minutes x20, 3 hold Cat cow Reps/Minutes x20 Sitting Exercises Seated hip hinge Resistance 10# Reps/Minutes x30 Comments cues for lumbo-pelvic mechanics seated lumbar flexion Reps/Minutes x20 Standing Exercises SLDL Standing Exercise Single leg kickstand deadlift Name Resistance BW Reps/Minutes x10 each side Comments Cues for posterior hip translation Standing hip hikes Side right Reps/Minutes 2x10 reps, with 5 hold each rep Comments On step for full range hip adduction Standing hinge Side bilateral Equipment Used table for UE support Reps/Minutes 3x10 Comments cues for posterior hip translation and weight shift Physical Therapy Assessment Goals Three Impairment General function Short Term Goal (STG Patient will demonstrate an increase in LEFS score to ) 73 in order to show an increase in self-perceived function. In progress (08/17/2025) STG Duration 3 weeks Doubler Helper Goal (LTG) Patient will demonstrate an increase in LEFS score to 79 in order to show an increase in self-perceived function. In progress (08/17/2025) LTG Duration 6 weeks 2 Impairment Lumbar load tolerance Short Term Goal (STG Patient will lift 20# from the ground with no increase ) in pain levels in order to better function with lifting from the ground. In progress - 08/17/2025 STG Duration 3 weeks Nursing Home Goal (LTG) Patient will lift 40# from the ground with no increase in pain levels in order to better function with lifting from the ground. In progress - 08/17/2025 LTG Duration 6 weeks One Impairment Pain intensity Short Term Goal (STG Patient will report a reduction in pain at worst to a 6 ) /10 in order to better function with sleeping through the night. Met - 08/17/2025 STG Duration 3 weeks Nursing Home Goal (LTG) Patient will report a reduction in pain at worst to a 4 /10 in order to better function with sleeping through the night. In progress - 08/17/2025 LTG Duration 6 weeks Assessment Summary Assessment Treatment focused on lateral hip loading and lumbar mobility. Patient tolerated treatment well with no lasting increases in pain levels. Plan next session to continue with plan of care and follow up on home exercises. Physical Therapy Plan Frequency and Duration Frequency of 2x/Week Treatment Duration of 12 treatment (weeks) Plan of Care Start 07/18/25 Date Plan of Care End 10/16/25 Date Next Visit Focus/Plan Next Note Type Treatment Note Next Visit Plan Continue with exercise prescription from today's session. Progress loads as tolerated. Added the following to HEP: SLDL hip hike off step
--- NOTE | 2025-08-29 14:30 | PT.OTN ---
Current Diagnoses Pain in right hip (08/29/25) Physical Therapy Treatment Note PT OP: Lower Back/Lower Extremity Start: 07/18/25 13:48 Freq: Status: Active Protocol: Document 08/29/25 10:53 RANDALL (Rec: 08/29/25 12:31 RANDALL [id number]) Out-Patient Physical Therapy Visit Information Visit Information Visit Type Treatment Note Visit Start Time 10:52 Visit Stop Time 11:30 Visit Number 9 Progress Note Due 09/16/25 OP-PT Subjective Patient Comments Patient Comments Patient reports no changes in presentation. Therapeutic Exercises Prone Exercises Prone press up Reps/Minutes x20, 3 hold Cat cow Reps/Minutes x20 Sitting Exercises Hip abduction machine Resistance up to 20# Reps/Minutes 3x10 Comments Staying in pain-free ranges Sciatic nerve glides Reps/Minutes 2x15 each side Seated hip hinge Resistance 15# Reps/Minutes 2x10 Comments cues for lumbo-pelvic mechanics Standing Exercises SLDL Standing Exercise Single leg kickstand deadlift Name Resistance 10# Reps/Minutes 3x10 each side Comments Cues for posterior hip translation Standing hip hikes Side right Reps/Minutes 2x10 reps, with 5 hold each rep Comments On step for full range hip adduction Standing hinge Side bilateral Resistance 20# Reps/Minutes 3x10 Comments cues for posterior hip translation and weight shift Physical Therapy Assessment Goals Three Impairment General function Short Term Goal (STG Patient will demonstrate an increase in LEFS score to ) 73 in order to show an increase in self-perceived function. In progress (08/17/2025) STG Duration 3 weeks Soap Tender Goal (LTG) Patient will demonstrate an increase in LEFS score to 79 in order to show an increase in self-perceived function. In progress (08/17/2025) LTG Duration 6 weeks 2 Impairment Lumbar load tolerance Short Term Goal (STG Patient will lift 20# from the ground with no increase ) in pain levels in order to better function with lifting from the ground. In progress - 08/17/2025 STG Duration 3 weeks Soap Tender Goal (LTG) Patient will lift 40# from the ground with no increase in pain levels in order to better function with lifting from the ground. In progress - 08/17/2025 LTG Duration 6 weeks One Impairment Pain intensity Short Term Goal (STG Patient will report a reduction in pain at worst to a 6 ) /10 in order to better function with sleeping through the night. Met - 08/17/2025 STG Duration 3 weeks Care Home Goal (LTG) Patient will report a reduction in pain at worst to a 4 /10 in order to better function with sleeping through the night. In progress - 08/17/2025 LTG Duration 6 weeks Assessment Summary Assessment Treatment focused on lateral hip strengthening and lumbar mobility. Patient tolerated treatment well with no lasting increases in symptoms. Plan next session to follow up on home exercises and continue with plan of care. Physical Therapy Plan Frequency and Duration Frequency of 2x/Week Treatment Duration of 12 treatment (weeks) Plan of Care Start 07/18/25 Date Plan of Care End 10/16/25 Date Next Visit Focus/Plan Next Note Type Treatment Note Next Visit Plan Continue with exercise prescription from today's session. Progress loads as tolerated. Added the following to HEP: SLDL hip hike off step
--- NOTE | 2025-08-31 12:30 | PT.OTN ---
Current Diagnoses Pain in right hip (08/31/25) Physical Therapy Treatment Note PT OP: Lower Back/Lower Extremity Start: 07/18/25 13:48 Freq: Status: Active Protocol: Document 08/31/25 11:38 RANDALL (Rec: 08/31/25 12:29 JAvery [id number]) Out-Patient Physical Therapy Visit Information Visit Information Visit Type Treatment Note Visit Start Time 11:38 Visit Stop Time 12:18 Visit Number 10 Progress Note Due 09/16/25 OP-PT Subjective Patient Comments Patient Comments Patient reports no changes in presentation. She has had minimal pain in her hip but reports some continued weakness at times. Therapeutic Exercises Prone Exercises Prone press up Reps/Minutes x20, 3 hold Cat cow Reps/Minutes x20 Sitting Exercises Sciatic nerve glides Reps/Minutes 2x15 each side Seated hip hinge Resistance 20# Reps/Minutes 2x10 Comments cues for lumbo-pelvic mechanics Standing Exercises SLDL Standing Exercise Single leg kickstand deadlift Name Resistance 10# Reps/Minutes 3x10 each side Comments Cues for posterior hip translation Standing hip hikes Side right Reps/Minutes 2x10 reps, with 5 hold each rep Comments On step for full range hip adduction Standing hinge Side bilateral Resistance 20# Reps/Minutes 3x10 Comments cues for posterior hip translation and weight shift Physical Therapy Assessment Goals Three Impairment General function Short Term Goal (STG Patient will demonstrate an increase in LEFS score to ) 73 in order to show an increase in self-perceived function. In progress (08/17/2025) STG Duration 3 weeks Cash Poster Goal (LTG) Patient will demonstrate an increase in LEFS score to 79 in order to show an increase in self-perceived function. In progress (08/17/2025) LTG Duration 6 weeks 2 Impairment Lumbar load tolerance Short Term Goal (STG Patient will lift 20# from the ground with no increase ) in pain levels in order to better function with lifting from the ground. In progress - 08/17/2025 STG Duration 3 weeks [facility] Goal (LTG) Patient will lift 40# from the ground with no increase in pain levels in order to better function with lifting from the ground. In progress - 08/17/2025 LTG Duration 6 weeks One Impairment Pain intensity Short Term Goal (STG Patient will report a reduction in pain at worst to a 6 ) /10 in order to better function with sleeping through the night. Met - 08/17/2025 STG Duration 3 weeks [facility] Goal (LTG) Patient will report a reduction in pain at worst to a 4 /10 in order to better function with sleeping through the night. In progress - 08/17/2025 LTG Duration 6 weeks Assessment Summary Assessment Treatment focused on continued hip strengthening. Patient tolerated treatment well with no increases in pain levels. Plan next session to complete progress note and discuss plan of care moving forward. Physical Therapy Plan Frequency and Duration Frequency of 2x/Week Treatment Duration of 12 treatment (weeks) Plan of Care Start 07/18/25 Date Plan of Care End 10/16/25 Date Next Visit Focus/Plan Next Note Type Treatment Note Next Visit Plan Continue with exercise prescription from today's session. Progress loads as tolerated. Current HEP: SLDL hip hike off step Prone press up Cat cows
--- NOTE | 2025-09-13 09:40 | PT.OPDS ---
Current Diagnoses Pain in right hip (09/13/25) Visit Care Team Role Provider Type Jeff Mendez DO Attending Provider Physician Family Provider Other Providers Primary Care Provider Referring Provider Specialty: Family Practice Address: [address] [place] [address], [facility] Email: [email or web address] Visit Number Visit Number 11 Discharge Summary PT OP: Lower Back/Lower Extremity Start: 07/18/25 13:48 Freq: Status: Active Protocol: Document 09/13/25 09:03 RANDALL (Rec: 09/13/25 09:39 RANDALL [id number]) Out-Patient Physical Therapy Visit Information Visit Information Visit Type Discharge Summary Visit Start Time 09:02 Visit Stop Time 09:30 Visit Number 11 Progress Note Due 09/16/25 OP-PT Subjective Patient Comments Patient Comments Patient reports she has not had any pain recently aside from after riding in the car. She is comfortable with where she is at and feels confident continuing exercises independently. Therapeutic Exercises Prone Exercises Prone press up Reps/Minutes x20, 3 hold Sitting Exercises Sciatic nerve glides Reps/Minutes 2x10 each side Standing Exercises SLDL Standing Exercise Single leg kickstand deadlift Name Resistance 10# Reps/Minutes 2x10 each side Comments Cues for posterior hip translation Standing hip hikes Side right Reps/Minutes 2x10 reps, with 5 hold each rep Comments On step for full range hip adduction Standing hinge Side bilateral Resistance 20# Reps/Minutes 3x10 Comments cues for posterior hip translation and weight shift Physical Therapy Assessment Goals Three Impairment General function Short Term Goal (STG Patient will demonstrate an increase in LEFS score to ) 73 in order to show an increase in self-perceived function. In progress (08/17/2025) STG Duration 3 weeks Snf Goal (LTG) Patient will demonstrate an increase in LEFS score to 79 in order to show an increase in self-perceived function. In progress (08/17/2025) LTG Duration 6 weeks 2 Impairment Lumbar load tolerance Short Term Goal (STG Patient will lift 20# from the ground with no increase ) in pain levels in order to better function with lifting from the ground. Met - 09/13/2025 STG Duration 3 weeks Snf Goal (LTG) Patient will lift 40# from the ground with no increase in pain levels in order to better function with lifting from the ground. In progress - 08/17/2025 LTG Duration 6 weeks One Impairment Pain intensity Short Term Goal (STG Patient will report a reduction in pain at worst to a 6 ) /10 in order to better function with sleeping through the night. Met - 08/17/2025 STG Duration 3 weeks Snf Goal (LTG) Patient will report a reduction in pain at worst to a 4 /10 in order to better function with sleeping through the night. Met - 09/13/2025 LTG Duration 6 weeks Assessment Summary Assessment Patient presenting with continued improvement in symptoms and reported confidence continuing home program independently. Treatment focused on reviewing exercises. Because of previously documented improvements, and patient-reported confidence continuing program independently, today will be her last formal PT session. Physical Therapy Plan Frequency and Duration Frequency of 2x/Week Treatment Duration of 12 treatment (weeks) Plan of Care Start 07/18/25 Date Plan of Care End 10/16/25 Date Next Visit Focus/Plan Next Visit Plan N/A - Patient to be discharged today.
== END 2025-09-18 15:09 | disposition home or self-care (01) ==
LOC: PHYS 09:00
PROVIDERS: Family Provider Family Medicine; PCP Family Medicine; Referring Provider Family Medicine; Visit Provider Family Medicine
DX: M25.551 Pain in right hip (principal)
CPT/HCPCS: 97110; 97140; 97161